=== PATIENT | female | born 1930 | race Caucasian/White ===

== ENCOUNTER 2018-07-03 13:27 | Emergency (ER) | payer MEDICARE, BC ==
[2018-07-03 13:32] VITALS: BP 159/71; PULSE 67; RESP 18; TEMP 98
--- NOTE | 2018-07-03 13:55 | ED ---
General Adult HPI - General Chief complaint: Wound/Laceration Stated complaint: left leg wound Time Seen by Provider: 07/03/18 13:41 Source: patient, family, RN notes reviewed Mode of arrival: ambulatory Limitations: no limitations - History of Present Illness Initial comments: Patient is a pleasant 88-year-old female presenting to the emergency Department with left leg wound. Patient did have a biopsy done 3 months ago. Patient has had wound since that time. Patient has oozing from the wound. No pain. No itching. No significant recent change in size. No fevers or rash otherwise. Patient has followed up with a rodeo performer who just keeps telling her to put Vaseline on it. - Related Data Previous Rx's Medication Instructions Recorded Cephalexin [Keflex] 500 mg PO QID #40 cap 07/03/18 Mupirocin 2% Oint [Bactroban 2% 1 applic TOPICAL TID #30 gm 07/03/18 Oint] Allergies Allergy/AdvReac Type Severity Reaction Status Date / Time bacitracin Allergy Rash/Hives Verified 07/03/18 13:33 [From Neosporin ([id number])] neomycin Allergy Rash/Hives Verified 07/03/18 13:33 [From Neosporin ([id number])] polymyxin B Allergy Rash/Hives Verified 07/03/18 13:33 [From Neosporin ([id number])] Review of Systems ROS Statement: Those systems with pertinent positive or pertinent negative responses have been documented in the HPI. ROS Other: All systems not noted in ROS Statement are negative. Constitutional: Denies: fever Eyes: Denies: eye pain ENT: Denies: ear pain Respiratory: Denies: cough Cardiovascular: Denies: chest pain Endocrine: Denies: fatigue Gastrointestinal: Denies: abdominal pain Genitourinary: Denies: dysuria Musculoskeletal: Denies: back pain Skin: Reports: other (Leg ulcer) Past Medical History Past Medical History: Thyroid Disorder Additional Past Medical History / Comment(s): irregular heart beat History of Any Multi-Drug Resistant Organisms: None Reported Past Surgical History: Appendectomy Past Psychological History: No Psychological Hx Reported Smoking Status: Never smoker Past Alcohol Use History: Daily Past Drug Use History: None Reported General Exam Limitations: no limitations General appearance: alert, in no apparent distress Head exam: Present: atraumatic Eye exam: Present: normal appearance Neck exam: Present: normal inspection Respiratory exam: Present: normal lung sounds bilaterally Cardiovascular Exam: Present: regular rate, normal rhythm Expanded Peripheral pulses: 2+: Dorsalis Pedis (R), Dorsalis Pedis (L) GI/Abdominal exam: Present: soft. Absent: tenderness Extremities exam: Present: other (Left lower lateral leg with approximately 2 x 2 centimeter skin ulcers stage 2/3. There is clear discharge. Area is approximately 5-6 cm above the left lateral ankle.) Neurological exam: Present: alert Psychiatric exam: Present: normal affect, normal mood Skin exam: Present: other (Skin ulcer) Course Vital Signs 07/03/18 13:29 Temperature 98 F Pulse Rate 67 Respiratory 18 Rate Blood Pressure 159/71 O2 Sat by Pulse 96 Oximetry Disposition Clinical Impression: Leg ulcer, left Disposition: HOME SELF-CARE Condition: Stable Instructions: Chronic Wounds (ED) Additional Instructions: Please follow-up with primary care physician in the next couple days for recheck. Have primary care physician consider consult to the wound center. Return for fever, redness, worsening symptoms or other concerns. Prescriptions: Cephalexin [Keflex] 500 mg PO QID #40 cap Mupirocin 2% Oint [Bactroban 2% Oint] 1 applic TOPICAL TID #30 gm Is patient prescribed a controlled substance at d/c from ED?: No Referrals: Jorge Gudino MD [Primary Care Provider] - 1-2 days Time of Disposition: 13:53
== END 2018-07-03 14:27 | disposition home or self-care (01) ==
LOC: EC 13:27
DX: L97.929 Non-pressure chronic ulcer of unspecified part of left lower leg with unspecified severity (principal); Z88.1 Allergy status to other antibiotic agents
CPT/HCPCS: 87070; 87077; 87186; 87205; 99283

== ENCOUNTER → 2018-07-18 | Outpatient (CLI) | payer MEDICARE, BC ==
--- NOTE | 2018-07-19 07:37 | US ---
EXAMINATION TYPE: US venous doppler duplex LE BI DATE OF EXAM: 07/18/2018 3:05 PM COMPARISON: NONE CLINICAL HISTORY: M.79.604 Pain rt leg,M79.605 Pain lt leg. SIDE PERFORMED: TECHNIQUE: The lower extremity deep venous system is examined utilizing real time linear array sonog lakisha with graded compression, doppler sonography and color-flow sonography. VESSELS IMAGED: External Iliac Vein (EIV) Common Femoral Vein Deep Femoral Vein Greater Saphenous Vein * Femoral Vein Popliteal Vein Small Saphenous Vein * Proximal Calf Veins (* superficial vessels) Grayscale, color doppler, spectral doppler imaging performed of the deep veins of the lower extremiti es. There is normal flow, compressibility, vascular waveforms. IMPRESSION: No evidence of DVT. LOWER EXTREMITY VENOUS INSUFFICIENCY SIDE PERFORMED: 1) Color flow is present and patency is documented in the following vessels. No DVT or SVT is noted . EIV Common Femoral Vein Deep Femoral Vein Femoral Vein Popliteal Vein Proximal Calf Veins Greater Saph Vein Upper Small Saph Vein 2) There is NO venous reflux noted at the following venous levels: Right proximal, mid and distal p opliteal Left DFV Left distal popliteal IMPRESSION: No venous reflux identified at this time.
--- NOTE | 2018-07-23 10:59 | P.ARTDOP ---
Arterial Doppler LOWER EXTREMITY ARTERIAL DOPPLER: DATE OF SERVICE: 07/18/2018 Reason for study: Left ankle ulcer. Doppler waveforms: Multiphasic bilaterally to the dorsalis pedis. Pulse volume recording: Normal configuration except at the toe level William blunted. Pressure gradients: Minimal gradient distally. Ankle-brachial indices: 0.97 on the right and no pressures done on the left.. Toe pressures: [] on the right, [] on the left Impression: Suspect mild distal disease bilaterally. Perfusion at the ankle level should be adequate for healing..
== END | disposition home or self-care (01) ==
LOC: RADUSWWP 13:20
PROVIDERS: ATTEND Internal Medicine Infectious Disease
DX: I87.2 Venous insufficiency (chronic) (peripheral) (principal); M79.604 Pain in right leg
CPT/HCPCS: 93923; 93970

== ENCOUNTER 2019-07-03 14:36 | Inpatient (IN) | payer MEDICARE, BC ==
[2019-07-03] MEDS ORDERED: SODIUM CHLORIDE 0.9% 1,000 ML IV STA (14:50)
[2019-07-03] MEDS ORDERED: PANTOPRAZOLE 40 MG/10 ML VIAL IVP STA (14:50)
[2019-07-03] MEDS ORDERED: ONDANSETRON 4 MG/2 ML VIAL IVP STA (14:50)
[2019-07-03 15:40] LABS: Basophils % (A) 0 %; Eosinophils # (A) 0.1 k/uL (0-0.7); Eosinophils % (A) 2 %; HGB 13.2 gm/dL (11.4-16.0); Lymphocytes # (A) 1.5 k/uL (1.0-4.8); Lymphocytes % (A) 16 %; MCH 32.2 pg (25.0-35.0); MCV 97.6 fL (80.0-100.0); Mean Platelet Volume 7.3; Monocytes # (A) 0.4 k/uL (0-1.0); Monocytes % (A) 5 %; Neutrophils # (A) 7.3 k/uL (1.3-7.7); Neutrophils % (A) 77 %; Platelet Count 225 k/uL (150-450); RDW 12.8 % (11.5-15.5); WBC 9.4 k/uL (3.8-10.6)
[2019-07-03 15:47] LABS: Albumin 3.9 g/dL (3.5-5.0); Calcium 9.3 mg/dL (8.4-10.2); Magnesium 2.4 mg/dL (1.6-2.3); Potassium 3.9 mmol/L (3.5-5.1); Total Bilirubin 0.5 mg/dL (0.2-1.3); Total Protein 6.9 g/dL (6.3-8.2)
[2019-07-03 16:07] LABS: INR 0.9 (<1.2); Prothrombin Time 10.1 sec (9.0-12.0)
[2019-07-03 16:08] LABS: Partial Thromboplastin Time 21.9 sec (22.0-30.0)
--- NOTE | 2019-07-03 16:21 | ED ---
General Adult HPI - General Chief complaint: Nausea/Vomiting/Diarrhea Stated complaint: ABd Pain Time Seen by Provider: 07/03/19 14:40 Source: patient, RN notes reviewed Mode of arrival: EMS Limitations: no limitations - History of Present Illness Initial comments: This is an 89-year-old female presents emergency department stating that an hour after she ate she became nauseated and vomited there was a little blood in the emesis. Patient states shortly thereafter she started having diarrhea which also had blood in it. Patient states she has lower abdominal pain. Patient denies lightheadedness or dizziness. Patient states she continues to be na useated. Patient denies any chest pain palpitations suddenly breathing shortness of breath per patient denies any lightheadedness or dizziness. Patient denies being on blood thinners - Related Data Home Medications Medication Instructions Recorded Confirmed Aspirin [Adult Low Dose Aspirin EC] 81 mg PO HS 07/03/18 07/03/19 Atenolol 25 mg PO HS 07/03/18 07/03/19 Furosemide [Lasix] 40 mg PO DAILY 07/03/18 07/03/19 Levothyroxine Sodium 25 mcg PO DAILY 07/03/18 07/03/19 Potassium Chloride ER [K-Dur 10] 10 meq PO BID 07/03/18 07/03/19 Allergies Allergy/AdvReac Type Severity Reaction Status Date / Time bacitracin Allergy Rash/Hives Verified 07/03/19 14:58 [From Neosporin ([id number])] neomycin Allergy Rash/Hives Verified 07/03/19 14:58 [From Neosporin ([id number])] polymyxin B Allergy Rash/Hives Verified 07/03/19 14:58 [From Neosporin ([id number])] Review of Systems ROS Statement: Those systems with pertinent positive or pertinent negative responses have been documented in the HPI. ROS Other: All systems not noted in ROS Statement are negative. Past Medical History Past Medical History: Thyroid Disorder Additional Past Medical History / Comment(s): irregular heart beat, fluid retention, wound lt outer leg by ankle History of Any Multi-Drug Resistant Organisms: None Reported Past Surgical History: Appendectomy Additional Past Surgical History / Comment(s): surgery for perforated rt eardrum and bone loss Past Anesthesia/Blood Transfusion Reactions: No Reported Reaction Past Psychological History: No Psychological Hx Reported Smoking Status: Never smoker Past Alcohol Use History: Daily Past Drug Use History: None Reported - Past Family History Sister(s) Family Medical History: Cancer Additional Family Medical History / Comment(s): lung cancer Mother Family Medical History: Congestive Heart Failure (CHF) General Exam - General Exam Comments Initial Comments: GENERAL: Patient is well-developed and well-nourished. Patient is nontoxic and well- hydrated and is in mild distress. ENT: Neck is soft and supple. No significant lymphadenopathy is noted. Oropharynx is clear. Moist mucous membranes. Neck has full range of motion without eliciting any pain. EYES: The sclera were anicteric and conjunctiva were pink and moist. Extraocular movements were intact and pupils were equal round and reactive to light. Eyelids were unremarkable. PULMONARY: Unlabored respirations. Good breath sounds bilaterally. No audible rales rho nchi or wheezing was noted. CARDIOVASCULAR: There is a regular rate and rhythm without any murmurs gallops or rubs. ABDOMEN: Mild suprapubic abdominal pain. No palpable organomegaly was noted. There is no palpable pulsatile mass. SKIN: Skin is clear with no lesions or rashes and otherwise unremarkable. NEUROLOGIC: Patient is alert and oriented x3. Cranial nerves II through XII are grossly intact. Motor and sensory are also intact. Normal speech, volume and content. Symmetrical smile. MUSCULOSKELETAL: Normal extremities with adequate strength and full range of motion. No lower extremity swelling or edema. No calf tenderness. LYMPHATICS: No significant lymphadenopathy is noted PSYCHIATRIC: Normal psychiatric evaluation. Limitations: no limitations Course Vital Signs 07/03/19 07/03/19 07/03/19 14:37 14:50 15:00 Temperature 97.4 F L Pulse Rate 69 64 63 Respiratory 18 27 H 19 Rate Blood Pressure 157/74 157/74 O2 Sat by Pulse 97 Oximetry 07/03/19 07/03/19 15:30 16:00 Temperature Pulse Rate 57 L 59 L Respiratory 14 11 L Rate Blood Pressure 149/79 138/66 O2 Sat by Pulse Oximetry Medical Decision Making - Medical Decision Making EKG shows sinus rhythm at 65 bpm QRS is 106 QT interval 442 QTC is 459. Patient's EKG shows no ST segment elevation or depression. Patient's AK interval is 200. I spoke with Dr. Gudino he agreed to admit the patient admitted the patient I wrote admitting orders I consulted GI and a repeat CBC - Lab Data Result diagrams: 07/03/19 15:22 07/03/19 15:22 Lab Results 07/03/19 07/03/19 07/03/19 Range/Units 15:22 15:22 15:22 WBC 9.4 (3.8-10.6) k/uL RBC 4.10 (3.80-5.40) m/uL Hgb 13.2 (11.4-16.0) gm/dL Hct 40.0 (34.0-46.0) % MCV 97.6 (80.0-100.0) fL MCH 32.2 (25.0-35.0) pg MCHC 33.0 (31.0-37.0) g/dL RDW 12.8 (11.5-15.5) % Plt Count 225 (150-450) k/uL Neutrophils % 77 % Lymphocytes % 16 % Monocytes % 5 % Eosinophils % 2 % Basophils % 0 % Neutrophils # 7.3 (1.3-7.7) k/uL Lymphocytes # 1.5 (1.0-4.8) k/uL Monocytes # 0.4 (0-1.0) k/uL Eosinophils # 0.1 (0-0.7) k/uL Basophils # 0.0 (0-0.2) k/uL PT 10.1 (9.0-12.0) sec INR 0.9 (<1.2) APTT 21.9 L (22.0-30.0) sec Sodium 141 (137-145) mmol/L Potassium 3.9 (3.5-5.1) mmol/L Chloride 108 H (98-107) mmol/L Carbon Dioxide 27 (22-30) mmol/L Anion Gap 6 mmol/L BUN 25 H (7-17) mg/dL Creatinine 0.77 (0.52-1.04) mg/dL Est GFR (CKD-EPI)AfAm 80 (>60 ml/min/1.73 sqM) Est GFR (CKD-EPI)NonAf 70 (>60 ml/min/1.73 sqM) Glucose 101 H (74-99) mg/dL Plasma Lactic Acid Torin (0.7-2.0) mmol/L Calcium 9.3 (8.4-10.2) mg/dL Magnesium 2.4 H (1.6-2.3) mg/dL Total Bilirubin 0.5 (0.2-1.3) mg/dL AST 25 (14-36) U/L ALT 18 (9-52) U/L Alkaline Phosphatase 72 (38-126) U/L Troponin I (0.000-0.034) ng/mL Total Protein 6.9 (6.3-8.2) g/dL Albumin 3.9 (3.5-5.0) g/dL Blood Type Blood Type Recheck Antibody Screen Spec Expiration Date 07/03/19 07/03/19 07/03/19 Range/Units 15:22 15:22 16:13 WBC (3.8-10.6) k/uL RBC (3.80-5.40) m/uL Hgb (11.4-16.0) gm/dL Hct (34.0-46.0) % MCV (80.0-100.0) fL MCH (25.0-35.0) pg MCHC (31.0-37.0) g/dL RDW (11.5-15.5) % Plt Count (150-450) k/uL Neutrophils % % Lymphocytes % % Monocytes % % Eosinophils % % Basophils % % Neutrophils # (1.3-7.7) k/uL Lymphocytes # (1.0-4.8) k/uL Monocytes # (0-1.0) k/uL Eosinophils # (0-0.7) k/uL Basophils # (0-0.2) k/uL PT (9.0-12.0) sec INR (<1.2) APTT (22.0-30.0) sec Sodium (137-145) mmol/L Potassium (3.5-5.1) mmol/L Chloride (98-107) mmol/L Carbon Dioxide (22-30) mmol/L Anion Gap mmol/L BUN (7-17) mg/dL Creatinine (0.52-1.04) mg/dL Est GFR (CKD-EPI)AfAm (>60 ml/min/1.73 sqM) Est GFR (CKD-EPI)NonAf (>60 ml/min/1.73 sqM) Glucose (74-99) mg/dL Plasma Lactic Acid Torin 1.1 (0.7-2.0) mmol/L Calcium (8.4-10.2) mg/dL Magnesium (1.6-2.3) mg/dL Total Bilirubin (0.2-1.3) mg/dL AST (14-36) U/L ALT (9-52) U/L Alkaline Phosphatase (38-126) U/L Troponin I <0.012 (0.000-0.034) ng/mL Total Protein (6.3-8.2) g/dL Albumin (3.5-5.0) g/dL Blood Type B Positive Blood Type Recheck CABO Indicated Antibody Screen NEGATIVE Spec Expiration Date 07/06/20192321 Disposition Clinical Impression: Gastroenteritis, GI bleed Disposition: ADMITTED IP TO THIS [facility] Referrals: Jorge Gudino MD [Primary Care Provider] - 1-2 days Time of Disposition: 16:48
[2019-07-03] MEDS ORDERED: SODIUM CHLORIDE 0.9% 1,000 ML IV ONE (16:49)
[2019-07-03] MEDS ORDERED: DIPHENOX-ATROP 2.5-0.025 MG 1 EACH TAB PO PRN (16:51)
[2019-07-03] MEDS ORDERED: ONDANSETRON 4 MG/2 ML VIAL IVP PRN (16:53)
[2019-07-03 19:45] LABS: Appearance,Urine Clear (Clear); Bilirubin,Urine Negative (Negative); Blood,Urine Negative (Negative); Color,Urine Yellow; Glucose,Urine (UA) Negative (Negative); Ketones,Urine Negative (Negative); Leukocyte Esterase,Urine Negative (Negative); Nitrite,Urine Negative (Negative); PH, Urine 6.5 (5.0-8.0); Protein,Urine Trace (Negative); Specific Gravity,Urine 1.024 (1.001-1.035)
[2019-07-03 22:01] LABS: Basophils % (A) 0 %; Eosinophils # (A) 0.1 k/uL (0-0.7); Eosinophils % (A) 1 %; HCT 34.1 % (34.0-46.0); HGB 11.2 gm/dL (11.4-16.0); Lymphocytes # (A) 1.1 k/uL (1.0-4.8); Lymphocytes % (A) 10 %; MCH 33.1 pg (25.0-35.0); MCHC 32.8 g/dL (31.0-37.0); MCV 100.8 fL (80.0-100.0); Mean Platelet Volume 7.5; Monocytes # (A) 0.4 k/uL (0-1.0); Monocytes % (A) 4 %; Neutrophils # (A) 9.5 k/uL (1.3-7.7); Neutrophils % (A) 85 %; Platelet Count 199 k/uL (150-450); RBC 3.38 m/uL (3.80-5.40); RDW 13.5 % (11.5-15.5); WBC 11.1 k/uL (3.8-10.6)
[2019-07-03 23:58] LABS: Glucose,Whole Blood 118 mg/dL (75-99)
[2019-07-04] MEDS ORDERED: NALOXONE 0.4 MG/ML 1 ML VIAL IV PRN (00:59)
[2019-07-04 04:41] LABS: Basophils % (A) 0 %; Eosinophils # (A) 0.1 k/uL (0-0.7); Eosinophils % (A) 1 %; HCT 33.6 % (34.0-46.0); HGB 10.8 gm/dL (11.4-16.0); Lymphocytes # (A) 1.2 k/uL (1.0-4.8); Lymphocytes % (A) 11 %; MCH 32.3 pg (25.0-35.0); MCHC 32.1 g/dL (31.0-37.0); MCV 100.6 fL (80.0-100.0); Monocytes # (A) 0.4 k/uL (0-1.0); Monocytes % (A) 4 %; Neutrophils # (A) 9.2 k/uL (1.3-7.7); Neutrophils % (A) 85 %; Platelet Count 189 k/uL (150-450); RBC 3.34 m/uL (3.80-5.40); RDW 12.8 % (11.5-15.5); WBC 10.9 k/uL (3.8-10.6)
[2019-07-04 04:52] LABS: African American GFR (CKD) >90 (>60 ml/min/1.73 sqM); Anion Gap 4 mmol/L; Blood Urea Nitrogen 43 mg/dL (7-17); Calcium 8.3 mg/dL (8.4-10.2); Carbon Dioxide 24 mmol/L (22-30); Chloride 114 mmol/L (98-107); Glucose 117 mg/dL (74-99); Non-African American GFR(CKD) 83 (>60 ml/min/1.73 sqM); Potassium 4.6 mmol/L (3.5-5.1); Sodium 142 mmol/L (137-145)
--- NOTE | 2019-07-04 07:45 | P.CRDCN ---
History of Present Illness Consult date: 07/04/19 Chief complaint: Bradycardia History of present illness: This is a pleasant 89-year-old female patient with a past medical history significant for hypertension as well as thyroid disorder presented to the emergency room complaining of blood in the stools for the last 24 hours. The patient also was experiencing symptoms of nausea as well as vomiting. No abdominal discomfort. No fever and no chills. No symptoms of chest pain or c hest discomfort. She was admitted to the intensive care unit for possible lower GI bleeding and a GI consult was obtained. The hemoglobin when she presented to the hospital was around 13 and a hemoglobin this morning was around 11. The patient stated that she was taken aspirin as an outpatient and also she was receiving nonsteroid anti-inflammatory for hip pain about twice a week. We involved in her care because off the bradycardia. The patient was yesterday in the bathroom having a bowel movement when she felt dizzy and lightheaded and she developed bradycardia as well as hypotension. The symptom seems to be consistent with vasovagal. She did not lose her consciousness. Beside that she did have an episode of muscle stent ventricular tachycardia last night. The patient is not aware of any history of coronary artery disease or congestive heart failure or cardiac arrhythmia and never seen any nuclear test technician in the past. No diabetes, or dyslipidemia. She was at home receiving atenolol. She has been maintaining a good heart rate and she is slightly hypertensive. On examination she does have systolic murmur at the right upper sternal border. The rest of her blood work came in to be unremarkable. The EKG showed sinus rhythm with left anterior fascicular block and nonspecific ST or T-wave abnormalities. Past Medical History Past Medical History: Thyroid Disorder Additional Past Medical History / Comment(s): irregular heart beat, fluid retention, wound lt outer leg by ankle History of Any Multi-Drug Resistant Organisms: None Reported Past Surgical History: Appendectomy Additional Past Surgical History / Comment(s): surgery for perforated rt eardrum and bone loss Past Anesthesia/Blood Transfusion Reactions: No Reported Reaction Past Psychological History: No Psychological Hx Reported Smoking Status: Never smoker Past Alcohol Use History: Daily Additional Past Alcohol Use History / Comment(s): 2 glasses wine nightly Past Drug Use History: None Reported - Past Family History Sister(s) Family Medical History: Cancer Additional Family Medical History / Comment(s): lung cancer Mother Family Medical History: Congestive Heart Failure (CHF) Medications and Allergies Home Medications Medication Instructions Recorded Confirmed Type Aspirin [Adult Low Dose Aspirin EC] 81 mg PO HS 07/03/18 07/03/19 History Atenolol 25 mg PO HS 07/03/18 07/03/19 History Furosemide [Lasix] 40 mg PO DAILY 07/03/18 07/03/19 History Levothyroxine Sodium 25 mcg PO DAILY 07/03/18 07/03/19 History Potassium Chloride ER [K-Dur 10] 10 meq PO BID 07/03/18 07/03/19 History Allergies Allergy/AdvReac Type Severity Reaction Status Date / Time bacitracin Allergy Rash/Hives Verified 07/03/19 14:58 [From Neosporin ([id number])] neomycin Allergy Rash/Hives Verified 07/03/19 14:58 [From Neosporin ([id number])] polymyxin B Allergy Rash/Hives Verified 07/03/19 14:58 [From Neosporin ([id number])] Physical Exam Vitals: Vital Signs Temp Pulse Pulse Resp BP BP Pulse Ox 07/04/19 07:00 78 19 143/117 92 L 07/04/19 06:00 75 14 148/71 90 L 07/04/19 05:00 75 19 147/81 93 L 07/04/19 04:00 97.9 F 73 20 137/66 94 L 07/04/19 03:00 75 7 L 144/61 91 L 07/04/19 02:00 75 20 115/97 92 L 07/04/19 01:00 68 10 L 140/85 95 07/04/19 00:16 97.9 F 70 20 142/109 95 07/03/19 23:39 99.0 F 64 16 133/63 96 07/03/19 21:47 97.8 F 89 17 129/69 96 07/03/19 21:10 98.6 F 60 18 128/63 96 07/03/19 20:30 16 07/03/19 19:23 58 L 16 157/71 95 07/03/19 18:53 128/69 07/03/19 18:15 97.7 F 80 17 179/67 94 L 07/03/19 18:05 97.4 F L 69 16 151/70 97 07/03/19 17:30 69 16 151/70 07/03/19 17:00 82 32 H 145/69 07/03/19 16:30 62 12 160/75 07/03/19 16:00 59 L 11 L 138/66 07/03/19 15:30 57 L 14 149/79 07/03/19 15:00 63 19 157/74 07/03/19 14:50 64 27 H 07/03/19 14:37 97.4 F L 69 18 157/74 97 Intake and Output 07/03/19 07/04/19 07/04/19 22:59 06:59 14:59 Intake Total 600 450 75 Output Total 810 100 Balance 600 -360 -25 Intake: IV 450 75 Sodium Chloride 0.9% 1, 450 75 000 ml @ 75 mls/hr IV . [id number] ONE Rx#:[id number] Amount of Fluid Infused ( 600 ml) Output: Urine 810 100 Other: Voiding Method Bedpan Indwelling Catheter # Voids 1 # Bowel Movements 2 1 - Constitutional General appearance: no acute distress - Respiratory Respiratory: bilateral: CTA - Cardiovascular Rhythm: regular Heart sounds: normal: S1, S2 Abnormal Heart Sounds: systolic murmur Results 07/04/19 04:31 07/04/19 04:31 Cardiac Enzymes 07/03/19 07/03/19 Range/Units 15:22 15:22 AST 25 (14-36) U/L Troponin I <0.012 (0.000-0.034) ng/mL Coagulation 07/03/19 Range/Units 15:22 PT 10.1 (9.0-12.0) sec APTT 21.9 L (22.0-30.0) sec CBC 07/03/19 07/03/19 07/04/19 Range/Units 15:22 21:38 04:31 WBC 9.4 11.1 H 10.9 H (3.8-10.6) k/uL RBC 4.10 3.38 L 3.34 L (3.80-5.40) m/uL Hgb 13.2 11.2 L 10.8 L (11.4-16.0) gm/dL Hct 40.0 34.1 33.6 L (34.0-46.0) % Plt Count 225 199 189 (150-450) k/uL Comprehensive Metabolic Panel 07/03/19 07/04/19 Range/Units 15:22 04:31 Sodium 141 142 (137-145) mmol/L Potassium 3.9 4.6 (3.5-5.1) mmol/L Chloride 108 H 114 H (98-107) mmol/L Carbon Dioxide 27 24 (22-30) mmol/L BUN 25 H 43 H (7-17) mg/dL Creatinine 0.77 0.59 (0.52-1.04) mg/dL Glucose 101 H 117 H (74-99) mg/dL Calcium 9.3 8.3 L (8.4-10.2) mg/dL AST 25 (14-36) U/L ALT 18 (9-52) U/L Alkaline Phosphatase 72 (38-126) U/L Total Protein 6.9 (6.3-8.2) g/dL Albumin 3.9 (3.5-5.0) g/dL Current Medications Generic Name Dose Route Start Last Admin Trade Name Freq PRN Reason Stop Dose Admin Diphenoxylate HCl/Atropine 1 each 07/03/19 16:51 Lomotil PO Q6HR PRN Diarrhea Naloxone HCl 0.2 mg 07/04/19 00:59 Narcan IV Q2M PRN Opioid Reversal Ondansetron HCl 4 mg 07/03/19 16:53 Zofran IVP Q6HR PRN Nausea And Vomiting Intake and Output 07/03/19 07/04/19 07/04/19 22:59 06:59 14:59 Intake Total 600 450 75 Output Total 810 100 Balance 600 -360 -25 Intake: IV 450 75 Sodium Chloride 0.9% 1, 450 75 000 ml @ 75 mls/hr IV . [id number] ONE Rx#:[id number] Amount of Fluid Infused ( 600 ml) Output: Urine 810 100 Other: Voiding Method Bedpan Indwelling Catheter # Voids 1 # Bowel Movements 2 1 07/04/19 04:31 07/04/19 04:31 Assessment and Plan Assessment: Assessment #1 lower GI bleeding. The patient currently is in process of being seen by the GI service #2 bradycardia and hypotension during a bowel movement. His is likely related to vasovagal. #3 one episode of nonsustained ventricular tachycardia #4 thyroid disorder Plan #1 currently the atenolol is on hold. #2 we'll continue monitor the heart rate and blood pressure #3 obtain an echocardiogram was Doppler #4 check the TSH #5 follow-up with the patient. Thank you for allowing us participate in her care and we will continue following up with the patient
--- NOTE | 2019-07-04 08:31 | CONS ---
CONSULTATION PULMONARY/CRITICAL CARE CONSULTATION DATE OF CONSULTATION: July 04, 2019 This is an 89-year-old female who apparently presents to the emergency room via EMS. She apparently ate and about one hour after eating, became nauseated and vomited and there was blood in the vomitus. Additionally afterwards, she started having abdominal discomfort and noted that she had some diarrhea and again there was blood in the stools. She had lower abdominal pain at that time. Anyway, because of the ongoing nausea and because of the concerns of what appears to be an upper GI bleed and possibly also a lower GI bleed, she was brought in by EMS to be evaluated. She denied any chest pain or pressure. There was no shortness of breath. No cough, wheezing, or phlegm production. There was no lightheadedness or dizziness. No genitourinary complaints. Anyway, the patient is currently here resting comfortably. She was admitted on July 03. She was admitted with GI bleed with hematemesis and bright red bleeding per rectum. Currently, she is on room air. She is getting saline at 75 mL an hour. She has not received any blood. Her hemoglobin this morning is 11.2. She has a past medical history of hypertension, lower extremity edema, and hypothyroidism. She has no previous history of same. HOME MEDICATIONS: Her home medications include aspirin, atenolol, Lasix levothyroxine, potassium chloride. ALLERGIES: Her allergies include BACITRACIN, NEOMYCIN and POLYMYXIN B. MEDICAL HISTORY: Her medical history includes hypothyroidism, hypertension and lower extremity edema. She also apparently has a history of fluid retention and irregular heartbeat. She also apparently has a wound on her left outer leg by her ankle. SURGICAL HISTORY: Surgical history includes appendectomy, perforated right ear drum repair and some other minor procedures. SOCIAL HISTORY: Social history is significant in that she is a lifelong nonsmoker. She does drink daily. Denies any drug use. FAMILY HISTORY: Past family history is positive for sister with lung cancer and mother with congestive heart failure. Her father's history is not known. REVIEW OF SYSTEMS: CONSTITUTIONAL: Negative. NEUROLOGIC: Negative. HEENT: Negative. CARDIOVASCULAR: Negative. PULMONARY: Negative. GI: Nausea, vomiting, hematemesis, diarrhea, abdominal pain and cramping and bright red bleeding per rectum/hematochezia. : Negative. RHEUMATOLOGIC: Negative. IMMUNOLOGIC: Negative. ENDOCRINOLOGIC: Negative. DERMATOLOGIC: Negative. PHYSICAL EXAMINATION: VITAL SIGNS: Current vital signs are reviewed and include temperature 97.9, heart rate 73, respiratory rate 20, blood pressure 137/66, mean 89 and room air saturation 94%. She appears in no acute distress. HEENT: Examination is grossly unremarkable. Mucous membranes are moist. No oral lesions. NECK: Supple. Full range of motion. No adenopathy or thyromegaly. Neck veins are flat. CARDIOVASCULAR: Examination reveals regular rhythm and rate. S1, S2 normal. No S3, S4, or murmur. Heart rate 73. LUNGS: Clear. Breath sounds equal. No adventitious lung sounds. No wheezes, rhonchi, or crackles. ABDOMEN: Soft. Bowel sounds are noted. No mass or tenderness. EXTREMITIES: Are intact. No cyanosis, clubbing, or edema. SKIN: Without rash. NEUROLOGIC: Examination is brief but nonfocal. The patient is on 0.9 at 75 mL an hour. LABORATORY DATA: Laboratory data includes a white count 10.9, repeat hemoglobin 10.8 down from 11.2, hematocrit 33.6, and a platelet count of 189,000. No x-rays to report. MEDICATIONS: Her current medications include Lomotil, Narcan, Zofran, Protonix and IV fluids. ASSESSMENT: 1. Possible upper and lower gastrointestinal bleed and this may relate to alcoholic gastritis as the patient apparently does drink on a daily basis. 2. History of hypothyroidism. 3. Hypertension. 4. Lower extremity edema. 5. Mild anemia. PLAN: Gastroenterology was consulted. She had been started on proton pump inhibitor. She remains on saline at 75 mL an hour. She has not received or required any blood. This morning's hemoglobin was 10.8. Additional recommendations and suggestions forthcoming. Aspirin has been discontinued. We will continue to follow closely. MMODL / IJN: [id number] /
[2019-07-04] MEDS: SODIUM CHLORIDE 0.9% 1,000 ML IV SCH ×2 (11:20→21:52)
--- NOTE | 2019-07-04 11:59 | P.CONS ---
History of Present Illness - Reason for Consult Consult date: 07/04/19 GI bleed Requesting physician: Jorge Gudino - Chief Complaint rectal bleeding - History of Present Illness 89-year-old female with a past medical history colonic diverticulosis per abdominal CT, lower extremity venous stasis ulcers, hypertension admitted with bilateral lower abdominal pain hematemesis and hematochezia. Patient reports passing multiple grossly bloody bowel movements yesterday however late last night heart rate dropped down into the 30s dizzy lightheaded possible vasovagal syndrome however she continued to pass bloody bowel movements followed by an e pisode of NSVT transferred to the ICU. This morning I see reports 3 bowel movements that have been black in color as well as an emesis this morning that was coffee-ground. No history GI bleed. She's been taking 400 mg of Motrin as needed not on a daily basis for hip pain. Additional home medications baby aspirin. No alcohol or Pepto-Bismol. Admission hemoglobin 13.2 presently 10.8. MCV 100.6. Platelet 189. INR 0.9. BUN 25 increase to 43. Troponin less than 0.012. Sodium 142. Potassium 4.6. Lactic acid 1.1. Magnesium 2.4 yesterday. No recent EGD. Last colonoscopy 2016 at [facility] performed by Dr. Brizuela scattered sigmoid diverticulosis. CT abdomen pelvis ordered. Review of Systems Constitutional: Denies fever, chills, sweats, weight gain, or loss. HEENT: Negative for migraines, blurred vision or loss, earaches, drainage, tinnitus, oral mucosal lesions, dysphagia, or odynophagia. CARDIAC: Negative for chest pain, arrhythmias, or palpitation. RESPIRATORY: Negative for shortness of breath, hemoptysis, cough, or sputum production. GI: See HPI for pertinent findings. : Negative for hematuria, urgency, frequency, polyuria, or dysuria. GYNc: Negative vaginal discharge. MUSCULOSKELETAL: Negative for muscle aches, swelling, arthritis, and arthralgias. NEUROLOGIC: Negative for stroke or TIA. ENDOCRINE: Negative for thyroid problems. SKIN: Negative for rash or itching. PSYCHIATRIC: Negative history for depression and anxiety Past Medical History Past Medical History: Thyroid Disorder Additional Past Medical History / Comment(s): irregular heart beat, fluid retention, wound lt outer leg by ankle History of Any Multi-Drug Resistant Organisms: None Reported Past Surgical History: Appendectomy Additional Past Surgical History / Comment(s): surgery for perforated rt eardrum and bone loss Past Anesthesia/Blood Transfusion Reactions: No Reported Reaction Past Psychological History: No Psychological Hx Reported Smoking Status: Never smoker Past Alcohol Use History: Daily Additional Past Alcohol Use History / Comment(s): 2 glasses wine nightly Past Drug Use History: None Reported - Past Family History Sister(s) Family Medical History: Cancer Additional Family Medical History / Comment(s): lung cancer Mother Family Medical History: Congestive Heart Failure (CHF) Medications and Allergies Home Medications Medication Instructions Recorded Confirmed Type Aspirin [Adult Low Dose Aspirin EC] 81 mg PO HS 07/03/18 07/03/19 History Atenolol 25 mg PO HS 07/03/18 07/03/19 History Furosemide [Lasix] 40 mg PO DAILY 07/03/18 07/03/19 History Levothyroxine Sodium 25 mcg PO DAILY 07/03/18 07/03/19 History Potassium Chloride ER [K-Dur 10] 10 meq PO BID 07/03/18 07/03/19 History Allergies Allergy/AdvReac Type Severity Reaction Status Date / Time bacitracin Allergy Rash/Hives Verified 07/03/19 14:58 [From Neosporin ([id number])] neomycin Allergy Rash/Hives Verified 07/03/19 14:58 [From Neosporin ([id number])] polymyxin B Allergy Rash/Hives Verified 07/03/19 14:58 [From Neosporin ([id number])] Physical Exam Vitals: Vital Signs Temp Pulse Pulse Resp BP BP Pulse Ox 07/04/19 10:00 68 18 156/71 95 07/04/19 09:00 89 17 155/59 95 07/04/19 08:00 98.7 F 85 19 134/64 94 L 07/04/19 07:00 78 19 143/117 92 L 07/04/19 06:00 75 14 148/71 90 L 07/04/19 05:00 75 19 147/81 93 L 07/04/19 04:00 97.9 F 73 20 137/66 94 L 07/04/19 03:00 75 7 L 144/61 91 L 07/04/19 02:00 75 20 115/97 92 L 07/04/19 01:00 68 10 L 140/85 95 07/04/19 00:16 97.9 F 70 20 142/109 95 07/03/19 23:39 99.0 F 64 16 133/63 96 07/03/19 21:47 97.8 F 89 17 129/69 96 07/03/19 21:10 98.6 F 60 18 128/63 96 07/03/19 20:30 16 07/03/19 19:23 58 L 16 157/71 95 07/03/19 18:53 128/69 07/03/19 18:15 97.7 F 80 17 179/67 94 L 07/03/19 18:05 97.4 F L 69 16 151/70 97 07/03/19 17:30 69 16 151/70 07/03/19 17:00 82 32 H 145/69 07/03/19 16:30 62 12 160/75 07/03/19 16:00 59 L 11 L 138/66 07/03/19 15:30 57 L 14 149/79 07/03/19 15:00 63 19 157/74 07/03/19 14:50 64 27 H 07/03/19 14:37 97.4 F L 69 18 157/74 97 Intake and Output 07/03/19 07/04/19 07/04/19 22:59 06:59 14:59 Intake Total 600 450 300 Output Total 810 640 Balance 600 -360 -340 Intake: IV 450 300 Sodium Chloride 0.9% 1, 450 300 000 ml @ 75 mls/hr IV . [id number] ONE Rx#:[id number] Amount of Fluid Infused ( 600 ml) Output: Urine 810 640 Other: Voiding Method Bedpan Indwelling Catheter Indwelling Catheter # Voids 1 1 # Bowel Movements 2 1 1 General appearance: The patient is alert, oriented, in no acute distress. HET: Head is normocephalic and atraumatic. Pupils are equal and reactive. Oropharynx is clear without lesions. Neck: Supple without lymphadenopathy. Trachea midline. Heart: S1 S2. Regular rate and rhythm. Lungs: No crackles or wheezes are heard. Abdomen: Soft, mildly tender bilateral lower abdomen, nondistended with bowel sounds. No peritoneal signs. No palpable organomegaly or masses. Extremities: Normal skin color and turgor. No cyanosis, rash, ulceration, clubbing, or edema. Radial and pedal pulses are 2/4 bilaterally. Neurological: No focal deficits. Strength and sensation are grossly intact. Results CBC & Chem 7: 07/04/19 04:31 07/04/19 04:31 Labs: Abnormal Lab Results - Last 24 Hours (Table) 07/03/19 07/03/19 07/03/19 Range/Units 15:22 15:22 16:32 WBC (3.8-10.6) k/uL RBC (3.80-5.40) m/uL Hgb (11.4-16.0) gm/dL Hct (34.0-46.0) % MCV (80.0-100.0) fL Neutrophils # (1.3-7.7) k/uL APTT 21.9 L (22.0-30.0) sec Chloride 108 H (98-107) mmol/L BUN 25 H (7-17) mg/dL Glucose 101 H (74-99) mg/dL POC Glucose (mg/dL) (75-99) mg/dL Calcium (8.4-10.2) mg/dL Magnesium 2.4 H (1.6-2.3) mg/dL Urine Protein (Negative) Stool Occult Blood Positive H (Negative) 07/03/19 07/03/19 07/03/19 Range/Units 19:40 21:38 23:55 WBC 11.1 H (3.8-10.6) k/uL RBC 3.38 L (3.80-5.40) m/uL Hgb 11.2 L (11.4-16.0) gm/dL Hct (34.0-46.0) % MCV 100.8 H (80.0-100.0) fL Neutrophils # 9.5 H (1.3-7.7) k/uL APTT (22.0-30.0) sec Chloride (98-107) mmol/L BUN (7-17) mg/dL Glucose (74-99) mg/dL POC Glucose (mg/dL) 118 H (75-99) mg/dL Calcium (8.4-10.2) mg/dL Magnesium (1.6-2.3) mg/dL Urine Protein Trace H (Negative) Stool Occult Blood (Negative) 07/04/19 07/04/19 Range/Units 04:31 04:31 WBC 10.9 H (3.8-10.6) k/uL RBC 3.34 L (3.80-5.40) m/uL Hgb 10.8 L (11.4-16.0) gm/dL Hct 33.6 L (34.0-46.0) % MCV 100.6 H (80.0-100.0) fL Neutrophils # 9.2 H (1.3-7.7) k/uL APTT (22.0-30.0) sec Chloride 114 H (98-107) mmol/L BUN 43 H (7-17) mg/dL Glucose 117 H (74-99) mg/dL POC Glucose (mg/dL) (75-99) mg/dL Calcium 8.3 L (8.4-10.2) mg/dL Magnesium (1.6-2.3) mg/dL Urine Protein (Negative) Stool Occult Blood (Negative) CT scan - abdomen: pending Assessment and Plan (1) GI bleed Narrative/Plan: 89-year-old female admitted with acute symptomatic acute blood loss GI bleed initially with episode of hematemesis and multiple episodes of hematochezia. She experienced episode of bradycardia and on SVT last night possible vasovagal syndrome lightheadedness dizziness. History of recent NSAID use for hip pain and now passing black-colored bowel movements as well as an episode of coffee- ground emesis this morning with elevation of BUN raising the possibility of underlying peptic ulcer disease. Additionally an underlying lower GI bleed cannot be excluded such as a colonic diverticular bleed, bleeding AVM, ischemic colitis. Current Visit: Yes Status: Acute Code(s): K92.2 - GASTROINTESTINAL HEMORRHAGE, UNSPECIFIED SNOMED Code(s): 33944373 (2) Acute blood loss anemia Current Visit: Yes Status: Acute Code(s): D62 - ACUTE POSTHEMORRHAGIC ANEMIA SNOMED Code(s): 267616926 (3) Hematemesis Current Visit: Yes Status: Acute Code(s): K92.0 - HEMATEMESIS SNOMED Code(s): 5839183 (4) Melena Current Visit: Yes Status: Acute Code(s): K92.1 - MELENA SNOMED Code(s): 8883622 (5) Hematochezia Current Visit: Yes Status: Acute Code(s): K92.1 - MELENA SNOMED Code(s): 712306580 (6) Acquired diverticulosis of colon Current Visit: Yes Status: Acute Code(s): K57.30 - DVRTCLOS OF LG INT W/O PERFORATION OR ABSCESS W/O BLEEDING SNOMED Code(s): 513601498 (7) Cardiac arrhythmia Current Visit: Yes Status: Acute Code(s): I49.9 - CARDIAC ARRHYTHMIA, UNSPECIFIED SNOMED Code(s): 012104554 (8) Advanced age Current Visit: Yes Status: Acute Code(s): R54 - AGE-RELATED PHYSICAL DEBILITY SNOMED Code(s): 14989974 Plan: 1. CBC Q6H x 24 hours. Blood transfusions as advised. Protonix 40 mg twice daily. NPO except meds. Will proceed with EGD today to evaluate for underlying peptic ulcer disease. Inpatient colonoscopy not planned at this time. CT of the abdomen and pelvis has been ordered by the attending. Will follow closely with you. No NSAIDs. Cardiology recommendations appreciated. The clerical specialist has discussed the risks, benefits and alternative therapies for the above-mentioned procedure and for both sedation/analgesia as well as necessary blood product administration, if indicated, as they pertain to this patient. The patient has indicated understanding and acceptance of the risks and procedures discussed. Thank you for this kind referral and the opportunity to participate in the care of your patient. This consultation was discussed with Dr. Brizuela. The impression and plan of care have been directed as dictated.
[2019-07-04 12:18] LABS: HCT 33.8 % (34.0-46.0); HGB 11.2 gm/dL (11.4-16.0); MCH 33.5 pg (25.0-35.0); MCHC 33.2 g/dL (31.0-37.0); MCV 100.9 fL (80.0-100.0); Platelet Count 180 k/uL (150-450); RBC 3.35 m/uL (3.80-5.40); RDW 12.8 % (11.5-15.5); WBC 12.5 k/uL (3.8-10.6)
--- NOTE | 2019-07-04 13:22 | HP ---
HISTORY AND PHYSICAL CHIEF COMPLAINT: An 89-year-old white female with past medical history of colon, diverticulosis, hypertension with bilateral lower edema, chronic dizziness, lightheadedness for multiple years for which she is seeing neurologist. She has some kind of vasovagal symptom and bloody bowel movements at home. She came to the hospital due to severe nausea, vomiting with bleeding in her emesis as well as in her stool, coffee-ground emesis while in the hospital. No prior history of GI bleeds and she does not take hardly any NSAIDs at home. She is only on aspirin for blood thinner. Medications are limited at home for hypertension, hypothyroid. Hemoglobin dropped from 13.2 to 11.2. She is admitted to ICU due to significant GI bleeding of unclear etiology. REVIEW OF SYSTEMS: Fourteen-point review of systems as mentioned above. PAST MEDICAL HISTORY: Hypertension with edema, hypothyroidism, irregular heartbeat, fluid retention in the legs. She does not smoke. Occasional alcohol 1 or 2 glasses of wine. Sister with cancer of the lung. MEDICATIONS: Medicines at home: 1. Lasix 40 daily. 2. Atenolol 25 daily. 3. Levothyroxine 25 mcg daily. 4. Potassium chloride 10 mEq b.i.d. 5. Aspirin 81. ALLERGIES: BACITRACIN, NEOMYCIN, POLYMYXIN. PHYSICAL EXAMINATION: Temp 98.7, pulse 60s to 70s, respiratory rate 18 to 20, blood pressure is 115 to 150s over 70s to 90s, O2 is 94% to 96%. CARDIOVASCULAR: S1, S2. NEUROLOGIC: Alert and oriented x3. PSYCH: Fair mood and affect. GI: Mild tenderness diffusely. Increased bowel sounds x4. No guarding. No rebound. Negative McBurney's point. HEMATOLOGY: Is 2+ edema, lymphedema type changes. LUNGS: Are clear. MUSCULOSKELETAL: Lordotic kyphotic spine. Tenderness to palpation spinal muscles in the neck. Labs were reviewed. ASSESSMENT: 1. Acute gastrointestinal bleed, unclear etiology. 2. History of diverticulosis. 3. Near syncope and bradycardia secondary to gastrointestinal bleed, possible vasovagal symptom. Cardiology and GI are definitely consulted. 4. Hematemesis, melena, hematochezia. 5. Diverticulosis. 6. Hypothyroidism. 7. Hypertension. Protonix, IV blood transfusions if needed, n.p.o. except for ice chips. EGD possible colonoscopy will be needed, although she states she had a colonoscopy 5 years ago which was normal. Await multiple consults. History and physical in the ICU: 60 minutes. MMODL / IJN: [id number] /
--- NOTE | 2019-07-04 14:33 | CT ---
EXAMINATION TYPE: CT abdomen pelvis wo con DATE OF EXAM: 07/04/2019 HISTORY: Generalized pain CT DLP: 574.2 mGycm. Automated Exposure Control for Dose Reduction was Utilized. TECHNIQUE: CT scan of the abdomen and pelvis is performed without oral or IV contrast. COMPARISON: CT abdomen and pelvis August 25, 2016 FINDINGS: Within the limitations of a non-contrast study, the following observations are made. LUNG BASES: There are tiny bilateral pleural effusions new from prior. LIVER/GB: Gallbladder has dependent gallstones axial image 42. No surrounding inflammatory change. PANCREAS: No significant abnormality is seen. SPLEEN: No significant abnormality is seen. ADRENALS: No significant abnormality is seen. KIDNEYS: Cortical thinning in both kidneys. No renal stones or hydronephrosis is seen bilaterally. Fo gerardo catheter decompresses bladder. BOWEL: Stable small hiatal hernia. Stomach is poorly distended and suboptimally evaluated. No suspici ous small or large bowel dilatation. There is mild wall thickening in the right colon. There is more moderate wall thickening in the transverse colon extending into the left colon. There is mild ill-def ined fluid and fat stranding near the level of the splenic flexure involving distal transverse colon on the left colon. There are some diverticula in the sigmoid colon with improved wall thickening. GENITAL ORGANS: Anteverted uterus. Stable 2.0 cm right ovarian or adnexal low-density lesion presumed benign given stability in size from 2016 CT. Tiny amount of free fluid pelvic cul-de-sac study image 71 LYMPH NODES: No greater than 1cm abdominal or pelvic lymph nodes are appreciated. OSSEOUS STRUCTURES: Disc calcification lower lumbar levels is seen. Facet arthropathy lower lumbar le vels. OTHER: Moderate to severe vascular calcification of aorta extends into branch vessels.. IMPRESSION: 1. New moderate colitis most prominent involving transverse and left colon. Differential includes inf ectious inflammatory and ischemic etiologies. Correlate clinically. 2. Gallstone is redemonstrated without CT evidence for acute cholecystitis. 3. New tiny amount of free fluid in pelvic cul-de-sac. Stable right ovarian lesion presumed benign.
[2019-07-04] MEDS: PANTOPRAZOLE 40 MG/10 ML VIAL IVP SCH ×2 (15:03→21:52)
[2019-07-04] MEDS ORDERED: IV FLUID CONTINUATION 400 ML IV ONE (15:40)
[2019-07-04] MEDS ORDERED: PROPOFOL 10 MG/ML 20 ML VIAL IV ONE (15:40)
[2019-07-04] MEDS ORDERED: LIDOCAINE 1% INJ 10MG/ML (20 ML MDV) ONE (15:40)
--- NOTE | 2019-07-04 15:51 | P.PCN ---
Date of Procedure: 07/04/19 Procedure(s) Performed: BRIEF HISTORY: Patient is a 89-year-old, pleasant, female, admitted hospital with acute upper GI bleed. She multiple episodes of coffee-ground emesis/hematemesis followed by black tarry stools. She dropped hemoglobin from 12-10 g/dL. She is scheduled for an upper endoscopy to evaluate further. She is been taking Motrin on and off for the last few days.. PROCEDURE PERFORMED: Esophagogastroduodenoscopy. PREOPERATIVE DIAGNOSIS: Acute GI bleed. IV sedation per anesthesia. PROCEDURE: After informed consent was obtained, the patient was brought into the endoscopy unit. IV sedation was administered by Anesthesia under continuous monitoring. Initially the Olympus GIF-140 video endoscope was inserted into the mouth. Esophagus intubated without any difficulty. It was gradually advanced into the stomach and duodenum and carefully examined. The bulb and the second part of the duodenum appeared normal. The scope at this time was withdrawn to the stomach, adequately insufflated with air, and upon careful examination, mucosa of the antrum, body, cardia and the fundus appeared normal. The scope was then withdrawn into the esophagus. The GE junction was located at 39 cm from the incisors. 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 The esophagus appeared normal. There were no erosions or ulcerations seen and the patient tolerated the procedure well. IMPRESSION: 1. 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 2. No evidence of peptic ulcer disease. RECOMMENDATIONS: The findings of this examination were discussed with the patie nt as well as a family. Continue with Protonix 40 mg daily. Advance diet as tolerated..
[2019-07-04] MEDS: VANCOMYCIN ORAL SOLUTION 250 MG/5 ML BOTTLE PO SCH ×2 (16:40→21:52)
[2019-07-04] MEDS: CHERRY FLAVOR 60 ML BOTTLE PO SCH ×2 (16:41→21:52)
--- NOTE | 2019-07-04 19:38 | ECHOF ---
Referral Reason:bradycardia MEASUREMENTS -------- HEIGHT: 167.6 cm WEIGHT: 72.6 kg BP: IVSd: 1.4 cm (0.6 - 1.1) LVIDd: 3.1 cm (3.9 - 5.3) LVPWd: 1.7 cm (0.6 - 1.1) IVSs: 1.7 cm LVIDs: 2.4 cm LVPWs: 2.1 cm Ao Diam: 2.8 cm (2.0 - 3.7) AV Cusp: 1.6 cm (1.5 - 2.6) LA Diam: 3.4 cm (2.7 - 3.8) MV EXCURSION: 16.312 mm (> 18.000) MV EF SLOPE: 29 mm/s (70 - 150) EPSS: 1.7 cm MV E Giovanni: 1.01 m/s MV DecT: 249 ms MV A Giovanni: 1.14 m/s MV E/A Ratio: 0.89 RAP: 5.00 mmHg RVSP: 46.81 mmHg FINDINGS -------- Sinus rhythm. This was a technically adequate study. The left ventricular size is normal. There is moderate concentric left ventricular hypertrophy. O verall left ventricular systolic function is normal with, an EF between 55 - 60 %. The right ventricle is normal in size. The left atrial size is normal. The right atrial size is normal. Aneurysmal Interatrial septum. The aortic valve is trileaflet and appears structurally normal. There is trace mitral regurgitation. The tricuspid valve appears structurally normal. Moderate tricuspid regurgitation present. There is mild pulmonary hypertension. The pulmonic valve was not well visualized. The aortic root size is normal. Normal inferior vena cava with normal inspiratory collapse consistent with estimated right atrial pre ssure of 5 mmHg. There is no pericardial effusion. CONCLUSIONS -------- 1. Sinus rhythm. 2. This was a technically adequate study. 3. The left ventricular size is normal. 4. There is moderate concentric left ventricular hypertrophy. 5. Overall left ventricular systolic function is normal with, an EF between 55 - 60 %. 6. The right ventricle is normal in size. 7. The left atrial size is normal. 8. The right atrial size is normal. 9. Aneurysmal Interatrial septum. 10. The aortic valve is trileaflet and appears structurally normal. 11. There is trace mitral regurgitation. 12. The tricuspid valve appears structurally normal. 13. Moderate tricuspid regurgitation present. 14. There is mild pulmonary hypertension. 15. The pulmonic valve was not well visualized. 16. The aortic root size is normal. 17. Normal inferior vena cava with normal inspiratory collapse consistent with estimated right atrial pressure of 5 mmHg. 18. There is no pericardial effusion. [employer]IC: Deidre Zamora RDCS
[2019-07-05 05:00] LABS: Basophils # (A) 0.1 k/uL (0-0.2); Basophils % (A) 1 %; Eosinophils # (A) 0.1 k/uL (0-0.7); Eosinophils % (A) 1 %; HCT 28.2 % (34.0-46.0); Lymphocytes # (A) 1.8 k/uL (1.0-4.8); Lymphocytes % (A) 19 %; MCH 33.1 pg (25.0-35.0); MCHC 32.5 g/dL (31.0-37.0); MCV 101.9 fL (80.0-100.0); Macrocytosis Slight; Mean Platelet Volume 7.5; Monocytes # (A) 0.4 k/uL (0-1.0); Monocytes % (A) 4 %; Neutrophils # (A) 7.2 k/uL (1.3-7.7); Neutrophils % (A) 74 %; Platelet Count 153 k/uL (150-450); RBC 2.77 m/uL (3.80-5.40); RDW 13.7 % (11.5-15.5); WBC 9.8 k/uL (3.8-10.6)
[2019-07-05 05:02] LABS: HGB 9.2 gm/dL (11.4-16.0)
[2019-07-05 05:09] LABS: African American GFR (CKD) >90 (>60 ml/min/1.73 sqM); Anion Gap 2 mmol/L; Blood Urea Nitrogen 23 mg/dL (7-17); Calcium 7.7 mg/dL (8.4-10.2); Carbon Dioxide 22 mmol/L (22-30); Chloride 117 mmol/L (98-107); Glucose 97 mg/dL (74-99); Non-African American GFR(CKD) 84 (>60 ml/min/1.73 sqM); Potassium 3.5 mmol/L (3.5-5.1); Sodium 141 mmol/L (137-145)
[2019-07-05] MEDS ORDERED: Potassium Replacement Protocol 1 EACH MISC MISCELLANE PRN (06:29)
--- NOTE | 2019-07-05 07:34 | P.PN ---
Subjective Progress Note Date: 07/05/19 Principal diagnosis: GI bleeding This is a pleasant 89-year-old female patient with a past medical history significant for hypertension as well as thyroid disorder presented to the emergency room complaining of blood in the stools for the last 24 hours. The patient also was experiencing symptoms of nausea as well as vomiting. No abdominal discomfort. No fever and no chills. No symptoms of chest pain or chest discomfort. She was admitted to the intensive care unit for possible lower GI bleeding and a GI consult was obtained. The hemoglobin when she presented to the hospital was around 13 and a hemoglobin this morning was around 11. The patient stated that she was taken aspirin as an outpatient and also she was receiving nonsteroid anti-inflammatory for hip pain about twice a week. We involved in her care because off the bradycardia. The patient was yesterday in the bathroom having a bowel movement when she felt dizzy and lightheaded and she developed bradycardia as well as hypotension. The symptom seems to be consistent with vasovagal. She did not lose her consciousness. Beside that she did have an episode of muscle stent ventricular tachycardia last night. The patient is not aware of any history of coronary artery disease or congestive heart failure or cardiac arrhythmia and never seen any property specialist in the past. No diabetes, or dyslipidemia. She was at home receiving atenolol. She has been maintaining a good heart rate and she is slightly hypertensive. On examination she does have systolic murmur at the right upper sternal border. The rest of her blood work came in to be unremarkable. The EKG showed sinus rhythm with left anterior fascicular block and nonspecific ST or T-wave abnormalities. On follow-up with the patient today, she seems to be asymptomatic from a cardiovascular standpoint overview. She has been maintaining normal sinus mechanism. The hemoglobin dropped to about 9. No more episode of GI bleeding. She was seen by the GI service and underwent an upper endoscopy which revealed Eva-Muller without any active bleeding. She underwent an echocardiogram which revealed normal LV function with mild MR, and moderate TR. Objective - Vital Signs Vital signs: Vital Signs Temp 98.2 F 07/05/19 04:00 Pulse 73 07/05/19 07:00 Resp 23 07/05/19 07:00 BP 125/55 07/05/19 07:00 Pulse Ox 96 07/05/19 07:21 Intake & Output 07/04/19 07/05/19 07/05/19 18:59 06:59 18:59 Intake Total 950 900 75 Output Total 1010 390 30 Balance -60 510 45 Intake: IV 950 900 75 Sodium Chloride 0.9% 1, 900 900 75 000 ml @ 75 mls/hr IV . [id number] ONE Rx#:[id number] Output: Urine 1010 390 30 Other: Voiding Method Indwelling Catheter Indwelling Catheter # Voids 1 # Bowel Movements 1 - Constitutional General appearance: Present: no acute distress - Respiratory Respiratory: bilateral: CTA - Cardiovascular Rhythm: regular Heart sounds: normal: S1, S2 - Labs CBC & Chem 7: 07/05/19 04:46 07/05/19 04:46 Labs: Abnormal Lab Results - Last 24 Hours (Table) 07/04/19 07/04/19 07/05/19 Range/Units 09:00 12:04 04:46 WBC 12.5 H (3.8-10.6) k/uL RBC 3.35 L 2.77 L (3.80-5.40) m/uL Hgb 11.2 L 9.2 L D (11.4-16.0) gm/dL Hct 33.8 L 28.2 L (34.0-46.0) % MCV 100.9 H 101.9 H (80.0-100.0) fL Chloride (98-107) mmol/L BUN (7-17) mg/dL Calcium (8.4-10.2) mg/dL C. difficile (EIA) Intrp Positive A (Negative) 07/05/19 Range/Units 04:46 WBC (3.8-10.6) k/uL RBC (3.80-5.40) m/uL Hgb (11.4-16.0) gm/dL Hct (34.0-46.0) % MCV (80.0-100.0) fL Chloride 117 H (98-107) mmol/L BUN 23 H (7-17) mg/dL Calcium 7.7 L (8.4-10.2) mg/dL C. difficile (EIA) Intrp (Negative) Assessment and Plan Assessment: Assessment #1 lower GI bleeding. The patient currently is in process of being seen by the GI service #2 bradycardia and hypotension during a bowel movement. His is likely related to vasovagal. #3 one episode of nonsustained ventricular tachycardia #4 thyroid disorder Plan #1 continue holding the atenolol #2 continue monitor the heart rate and blood pressure #3 echo was reviewed and revealed normal LV function was moderate TR #4 follow-up with the patient Thank you for allowing us participate in her care and we will continue following up with the patient
[2019-07-05] MEDS: CHERRY FLAVOR 60 ML BOTTLE PO SCH ×3 (08:34→23:00)
[2019-07-05] MEDS: VANCOMYCIN ORAL SOLUTION 250 MG/5 ML BOTTLE PO SCH ×3 (08:34→23:00)
[2019-07-05] MEDS: PANTOPRAZOLE 40 MG/10 ML VIAL IVP SCH (08:35)
[2019-07-05] MEDS: POTASSIUM CHLORIDE ER 20 MEQ TAB.ER PO SCH ×2 (08:35→09:22)
[2019-07-05] MEDS: SODIUM CHLORIDE 0.9% 1,000 ML IV SCH ×2 (09:23→23:54)
--- NOTE | 2019-07-05 10:38 | PN ---
PROGRESS NOTE DATE OF SERVICE: July 05, 2019 This is an 89-year-old female seen yesterday in consultation. She came in with GI bleed. She had an EGD yesterday. It showed Eva-Muller tear, but there was no active bleeding. She was also tested positive for C difficile. She was started on oral vancomycin. Currently, she is doing well. She is on O2 at 2 L by nasal cannula and saline at 75 mL an hour. Her hemoglobin today was 9.2, which is down a bit. There is no active bleeding at this time. She does have a history of hypothyroidism, hypertension, lower extremity edema, and mild anemia. She denies any chest pain or chest discomfort. No shortness of breath. No cough or wheezing. No phlegm production. No further GI bleeding. No complaints. PHYSICAL EXAMINATION: VITAL SIGNS: Current vital signs are reviewed. Temperature 98.2. Heart rate 73, respiratory rate 23, blood pressure 125/55, mean 78, saturations are 96% on 1 L. Appears in no acute distress. HEENT examination is grossly unremarkable. NECK: Supple. Full range of motion. No adenopathy. Neck veins are flat. CARDIOVASCULAR examination reveals regular rhythm and rate. Heart rate 73 beats per minute. S1, S2 normal. There is no murmur. LUNGS: Reveal clear breath sounds. No adventitious lung sounds. Breath sounds equal bilaterally. ABDOMEN: Soft. Bowel sounds are heard. EXTREMITIES are intact. No cyanosis, clubbing, or edema. SKIN: Without rash. NEUROLOGIC examination is brief but nonfocal. LABS: Reviewed. White count 9.8, hemoglobin 9.2. Yesterday it was 11.2. Hematocrit 28.2, and platelet count 153,000. Sodium 141, potassium 3.5, chloride 117, CO2 22. Anion gap is 2, BUN and creatinine were 23 and 0.57. C diff was positive. No recent x-rays to report. MEDICATIONS: Reviewed. She was placed on oral vancomycin. She has got Lomotil, Narcan, Zofran, Protonix, oral vancomycin, and a basic IV. ASSESSMENT: 1. Gastrointestinal bleed, upper gastrointestinal tract, secondary to a Eva-Muller tear, but no active bleeding. 2. C difficile colitis. 3. History of hypothyroidism. 4. Hypertension. 5. Lower extremity edema. 6. Mild anemia. PLAN: The patient is doing better. She could be transferred out to the general medical floor. No active bleeding. We will continue to follow. Prognosis is guarded. Her hemoglobin did drop. She has not received any blood since she has been here. She is not requiring any significant interventions at this time to warrant to stay here in the ICU. Should she have a problem again, we will certainly move her back. CYN / ROSAURA: [id number] /
--- NOTE | 2019-07-05 10:44 | PN ---
PROGRESS NOTE DATE OF SERVICE: 07/05/2019. REQUESTING PHYSICIAN: Dr. Jorge Gudino. The patient is an 89-year-old pleasant white female admitted to the hospital with acute upper gastrointestinal bleed. She had an upper endoscopy done yesterday that showed a Eva-Muller tear with no active bleeding. The patient has been maintained on Protonix 40 mg daily and doing well. During this hospitalization, she was also diagnosed with C diff colitis and was started on Vancomycin yesterday. This morning she is feeling good, she reports no abdominal pain. No nausea, vomiting. No further episodes of melena. In fact, she had no bowel movement since yesterday. No fever, chills, night sweats. PHYSICAL EXAMINATION: She appears comfortable in no apparent distress. Vital signs stable. Blood pressure is 125/55, pulse is 75, temperature 98.1. HEENT examination: Unremarkable. Conjunctivae pink. Sclerae anicteric. Oral cavity no lesions. Neck no JVD or lymph node enlargement. Chest was clear to auscultation. HEART: Regular rate and rhythm. ABDOMEN: Soft, it was nontender, nondistended. Bowel sounds are positive. No organomegaly. EXTREMITIES: No pedal edema. Skin no rashes. NEUROLOGIC: Alert and oriented x3. No focal deficits. LABS: WBC 9.8, hemoglobin 9.2, platelets are normal. Basic metabolic panel is within normal limits. BUN is 23, creatinine 0.57. C. dif is positive. IMPRESSION: 1. Acute upper gastrointestinal bleed, status post EGD yesterday that showed a Eva- Muller tear with no active bleeding. Currently, the bleeding has subsided. Hemoglobin down to 9.2 g/dL. 2. Clostridium difficile colitis on oral vancomycin. The patient has no diarrhea. RECOMMENDATIONS: 1. Continue with Protonix 40 mg daily. 2. Advance diet as tolerated. 3. Continue oral vancomycin for C diff colitis. 4. She can be transferred to the floor today. 5. Repeat CBC in the morning. 6. We will follow with you closely during the hospital stay. Thank you for this consultation. MMODL / IJN: [id number] /
[2019-07-05] MEDS: PANTOPRAZOLE 40 MG TABLET PO SCH (16:55)
--- NOTE | 2019-07-06 00:14 | PN ---
PROGRESS NOTE 89-year-old white female in ICU. Hemoglobin dropped to 9.2 from 11.2. The patient has had a Eva-Muller tear on EGD, has not had any more bleeding in the last 24 hours even though hemoglobin has dropped down to 9.2. C diff is positive. She has been started on oral vancomycin 250 t.i.d. Cardiovascular: S1-S2. Lungs clear. GI: Increased bowel sounds. Psych: Fair mood and affect. ASSESSMENT: 1. Eva-Muller tear. 2. Gastrointestinal bleed. 3. Gastroenteritis. 4. C diff colitis. 5. Hypertension. 6. Dyslipidemia. Continue current treatment, vancomycin oral 250 t.i.d. Check CBC in the morning. Transfuse for hemoglobin less than 8. Possible discharge next 24 to 48 hours. ICU time - 30 minutes. MMODL / IJN: [id number] /
[2019-07-06 04:45] LABS: Basophils % (A) 0 %; Eosinophils # (A) 0.2 k/uL (0-0.7); Eosinophils % (A) 3 %; HCT 28.6 % (34.0-46.0); HGB 9.1 gm/dL (11.4-16.0); Lymphocytes # (A) 1.9 k/uL (1.0-4.8); Lymphocytes % (A) 22 %; MCH 32.5 pg (25.0-35.0); MCHC 31.8 g/dL (31.0-37.0); MCV 102.1 fL (80.0-100.0); Macrocytosis Slight; Mean Platelet Volume 7.6; Monocytes # (A) 0.3 k/uL (0-1.0); Monocytes % (A) 4 %; Neutrophils # (A) 6.1 k/uL (1.3-7.7); Neutrophils % (A) 71 %; Platelet Count 158 k/uL (150-450); WBC 8.7 k/uL (3.8-10.6)
[2019-07-06 04:52] LABS: African American GFR (CKD) >90 (>60 ml/min/1.73 sqM); Anion Gap 4 mmol/L; Blood Urea Nitrogen 14 mg/dL (7-17); Calcium 7.9 mg/dL (8.4-10.2); Carbon Dioxide 24 mmol/L (22-30); Chloride 113 mmol/L (98-107); Glucose 98 mg/dL (74-99); Non-African American GFR(CKD) 81 (>60 ml/min/1.73 sqM); Sodium 141 mmol/L (137-145)
[2019-07-06] MEDS: PANTOPRAZOLE 40 MG TABLET PO SCH ×2 (06:37→18:23)
--- NOTE | 2019-07-06 08:05 | P.PN ---
Subjective Progress Note Date: 07/06/19 Principal diagnosis: GI bleeding This is a pleasant 89-year-old female patient with a past medical history significant for hypertension as well as thyroid disorder presented to the emergency room complaining of blood in the stools for the last 24 hours. The patient also was experiencing symptoms of nausea as well as vomiting. No abdominal discomfort. No fever and no chills. No symptoms of chest pain or chest discomfort. She was admitted to the intensive care unit for possible lower GI bleeding and a GI consult was obtained. The hemoglobin when she presented to the hospital was around 13 and a hemoglobin this morning was around 11. The patient stated that she was taken aspirin as an outpatient and also she was receiving nonsteroid anti-inflammatory for hip pain about twice a week. We involved in her care because off the bradycardia. The patient was yesterday in the bathroom having a bowel movement when she felt dizzy and lightheaded and she developed bradycardia as well as hypotension. The symptom seems to be consistent with vasovagal. She did not lose her consciousness. Beside that she did have an episode of muscle stent ventricular tachycardia last night. The patient is not aware of any history of coronary artery disease or congestive heart failure or cardiac arrhythmia and never seen any senior tech manufacturing engineering in the past. No diabetes, or dyslipidemia. She was at home receiving atenolol. She has been maintaining a good heart rate and she is slightly hypertensive. On examination she does have systolic murmur at the right upper sternal border. The rest of her blood work came in to be unremarkable. The EKG showed sinus rhythm with left anterior fascicular block and nonspecific ST or T-wave abnormalities. On follow-up with the patient today, she seems to be asymptomatic from a cardiovascular standpoint overview. She has been maintaining normal sinus mechanism. The echo revealed normal LV function. I am going to start the pat ient on home dose of atenolol. Objective - Vital Signs Vital signs: Vital Signs Temp 98.1 F 07/06/19 04:00 Pulse 98 07/06/19 04:00 Resp 14 07/06/19 04:00 BP 140/69 07/06/19 04:00 Pulse Ox 92 L 07/06/19 07:27 Intake & Output 07/05/19 07/06/19 07/06/19 18:59 06:59 18:59 Intake Total 850 Output Total 265 450 Balance 585 -450 Weight 81.5 kg Intake: IV 75 Sodium Chloride 0.9% 1, 75 000 ml @ 75 mls/hr IV . [id number] ONE Rx#:[id number] Intake, IV Titration 375 Amount Sodium Chloride 0.9% 1, 375 000 ml @ 75 mls/hr IV . [id number] MYRON Rx#:[id number] Oral 400 Output: Urine 265 450 Other: Voiding Method Indwelling Catheter Indwelling Catheter - Constitutional General appearance: Present: no acute distress - Respiratory Respiratory: bilateral: CTA - Cardiovascular Rhythm: regular Heart sounds: normal: S1, S2 - Labs CBC & Chem 7: 07/06/19 04:16 07/06/19 04:16 Labs: Abnormal Lab Results - Last 24 Hours (Table) 07/06/19 07/06/19 Range/Units 04:16 04:16 RBC 2.80 L (3.80-5.40) m/uL Hgb 9.1 L (11.4-16.0) gm/dL Hct 28.6 L (34.0-46.0) % MCV 102.1 H (80.0-100.0) fL Chloride 113 H (98-107) mmol/L Calcium 7.9 L (8.4-10.2) mg/dL Assessment and Plan Assessment: Assessment #1 lower GI bleeding. The patient currently is in process of being seen by the GI service #2 bradycardia and hypotension during a bowel movement. His is likely related to vasovagal. #3 one episode of nonsustained ventricular tachycardia #4 thyroid disorder Plan #1 restart the patient on atenolol #2 continue monitor the blood pressure and heart rate #3 follow-up with the patient Thank you for allowing us participate in her care and we will continue following up with the patient
--- NOTE | 2019-07-06 08:42 | PN ---
PROGRESS NOTE DATE OF SERVICE: July 06, 2019 89-year-old female with a recent diagnosis of Eva-Muller tear, but no active bleeding. The patient came into the hospital with complaints of vomiting up blood. The patient does have a history of C difficile colitis, on oral vancomycin, hypothyroidism, hypertension, lower extremity edema and mild anemia. All in all, the patient is doing much better. The patient is currently on O2 at 2 L. Her IV saline at 75 mL an hour. She was started on oral vancomycin for the C difficile colitis. The patient denies any chest pain or chest discomfort. There is no shortness of breath. No cough or wheezing. No further episodes of gastrointestinal bleed. PHYSICAL EXAMINATION: VITAL SIGNS: Current vital signs include temperature 98.1, heart rate 98, respiratory rate 14, blood pressure 140/69, mean 92, 2 L saturation 98%. She appears in no acute distress. HEENT examination is grossly unremarkable. Mucous membranes are moist. No oral lesions. NECK: Supple. Full range of motion. No adenopathy or thyromegaly. Neck veins are flat. CARDIOVASCULAR examination reveals regular rhythm rate. S1, S2 normal. No S3, S4, or murmur. LUNGS: Reveal clear breath sounds. No wheezes or rhonchi. ABDOMEN: Soft. Bowel sounds are heard. No masses or tenderness. EXTREMITIES are intact. No cyanosis, clubbing, or edema. SKIN: Without rash. NEUROLOGIC examination is brief but nonfocal. LAB DATA: Reviewed. White count 8.7, hemoglobin 9.1, hematocrit 28.6, platelet count 158,000. Sodium 141, potassium 4, chloride 113, CO2 24, anion gap 4. Kidney function is normal. C diff testing was positive. No recent x-rays to review. ASSESSMENT: 1. Upper gastrointestinal bleed secondary to Eva-Muller tear, with no active bleeding. 2. C difficile colitis. 3. Hypothyroidism. 4. Hypertension. 5. Lower extremity edema. 6. Mild anemia. PLAN: The patient is doing well. She is a selective overflow patient. She has had no further episodes of hematemesis. We did discuss the diagnosis with her. She does understand. No additional recommendations are made. We will continue to follow. Prognosis is guarded. MMODL / IJN: [id number] /
[2019-07-06] MEDS: VANCOMYCIN ORAL SOLUTION 250 MG/5 ML BOTTLE PO SCH ×3 (09:19→20:37)
[2019-07-06] MEDS: CHERRY FLAVOR 60 ML BOTTLE PO SCH ×3 (09:20→20:37)
--- NOTE | 2019-07-06 10:12 | PN ---
PROGRESS NOTE Patient is an 89-year-old pleasant white female admitted to the hospital with nausea, vomiting, coffee-grounds emesis/hematemesis and melena. She had an upper endoscopy done by me 2 days ago that showed evidence of Eva-Muller tear with no active bleeding. While in the hospital, the patient was also noted to have some bradycardia and hypertension and Cardiology following the patient closely. She was also diagnosed with C diff colitis and presently on oral vancomycin. She is feeling good this morning. She did not have any bowel movement so far. No nausea, vomiting. Denies any abdominal pain. On a regular diet tolerating well. PHYSICAL EXAMINATION: She appears comfortable, in no apparent distress. VITAL SIGNS: Stable. Blood pressure is 121/57, pulse rate 82, temperature 97.9. HEENT: Examination unremarkable. Conjunctivae pink. Sclerae anicteric. Oral cavity no lesions. NECK: No JVD or lymph node enlargement. CHEST: Clear to auscultation. HEART: Regular rate and rhythm. ABDOMEN: Soft. Bowel sounds are positive. No organomegaly. EXTREMITIES: No pedal edema. SKIN: No rashes. NEUROLOGIC: Alert and oriented x3. No focal deficits. LABS: From today WBC 8.7, hemoglobin 9.1, platelets are normal. Basic metabolic panel is within normal limits. IMPRESSION: 1. Acute upper gastrointestinal bleed secondary to Eva-Muller tear, status post EGD 2 days ago as mentioned above. The patient is clinically stable and no further episodes of bleeding. She did drop her hemoglobin from 10.8 to 9.1 g/dL, but currently remains stable. 2. C diff colitis on oral vancomycin. No further episodes of diarrhea. 3. Hypertension and bradycardia, which seems to have resolved. Cardiology following the patient closely. RECOMMENDATIONS: 1. Continue with Protonix 40 mg daily. 2. Advance diet as tolerated. 3. CBC on daily basis. 4. Continue with vancomycin and will follow her closely during the hospital stay. Thank you for this consultation. MMODL / MARTINN: [id number] /
[2019-07-06] MEDS: SODIUM CHLORIDE 0.9% 1,000 ML IV SCH (16:18)
[2019-07-06] MEDS ORDERED: ATENOLOL 25 MG TAB PO SCH (21:00)
--- NOTE | 2019-07-07 01:06 | PN ---
PROGRESS NOTE SUBJECTIVE: 89-year-old white female with gastroenteritis, GI bleed, C diff colitis, Eva-Muller tear. Hemoglobin stabilizes 9.1. No further bleeding or vancomycin slowing down the diarrhea from C diff colitis. Will try to wean off oxygen today. Increase ambulation. Cardiovascular S1-S2. Lungs clear. GI: Increased bowel sounds x4. Hematology negative Homans. IMPRESSION: 1. Clostridium difficile colitis. 2. Gastrointestinal bleed from Eva-Muller tear. 3. Hypertension with anemia. Continue oral vancomycin. Check hemoglobin in the morning. Possible discharge home in the morning. MMODL / IJN: [id number] /
[2019-07-07] MEDS: SODIUM CHLORIDE 0.9% 1,000 ML IV SCH (04:07)
[2019-07-07 05:04] LABS: Basophils % (A) 0 %; Eosinophils # (A) 0.2 k/uL (0-0.7); Eosinophils % (A) 4 %; HCT 28.7 % (34.0-46.0); HGB 9.4 gm/dL (11.4-16.0); Lymphocytes # (A) 1.8 k/uL (1.0-4.8); Lymphocytes % (A) 28 %; MCH 33.4 pg (25.0-35.0); MCHC 32.8 g/dL (31.0-37.0); MCV 101.8 fL (80.0-100.0); Macrocytosis Slight; Mean Platelet Volume 7.5; Monocytes # (A) 0.3 k/uL (0-1.0); Monocytes % (A) 4 %; Neutrophils # (A) 4.1 k/uL (1.3-7.7); Neutrophils % (A) 63 %; Platelet Count 180 k/uL (150-450); RBC 2.81 m/uL (3.80-5.40); WBC 6.6 k/uL (3.8-10.6)
[2019-07-07] MEDS: PANTOPRAZOLE 40 MG TABLET PO SCH (06:46)
--- NOTE | 2019-07-07 07:20 | P.PN ---
Subjective Progress Note Date: 07/07/19 Principal diagnosis: GI bleeding This is a pleasant 89-year-old female patient with a past medical history significant for hypertension as well as thyroid disorder presented to the emergency room complaining of blood in the stools for the last 24 hours. The patient also was experiencing symptoms of nausea as well as vomiting. No abdominal discomfort. No fever and no chills. No symptoms of chest pain or chest discomfort. She was admitted to the intensive care unit for possible lower GI bleeding and a GI consult was obtained. The hemoglobin when she presented to the hospital was around 13 and a hemoglobin this morning was around 11. The patient stated that she was taken aspirin as an outpatient and also she was receiving nonsteroid anti-inflammatory for hip pain about twice a week. We involved in her care because off the bradycardia. The patient was yesterday in the bathroom having a bowel movement when she felt dizzy and lightheaded and she developed bradycardia as well as hypotension. The symptom seems to be consistent with vasovagal. She did not lose her consciousness. Beside that she did have an episode of nonsustained ventricular tachycardia last night. The patient is not aware of any history of coronary artery disease or congestive heart failure or cardiac arrhythmia and never seen any groover operator in the past. No diabetes, or dyslipidemia. She was at home receiving atenolol. I'll follow-up with the patient today, 07/07/2019, the patient has been doing well clinically. Her lowest hemoglobin was 9.1. She is asymptomatic. She has been maintaining normal sinus mechanism. No more episodes of sinus bradycardia and no more episode of nonsustained ventricular tachycardia. The echocardiogram revealed normal LV function was moderate tricuspid regurgitation. Yesterday I did restart the patient back on her home dose of atenolol. Objective - Vital Signs Vital signs: Vital Signs Temp 97.2 F L 07/07/19 04:00 Pulse 92 07/07/19 04:00 Resp 16 07/07/19 04:00 BP 133/72 07/07/19 04:00 Pulse Ox 94 L 07/07/19 04:00 Intake & Output 07/06/19 07/07/19 07/07/19 18:59 06:59 18:59 Intake Total 750 Output Total 275 900 Balance 475 -900 Weight 83.2 kg Intake: Intake, IV Titration 750 Amount Sodium Chloride 0.9% 1, 750 000 ml @ 75 mls/hr IV . [id number] COUNT INCLUDES THE [facility] Rx#:[id number] Output: Urine 275 900 Other: Voiding Method Indwelling Catheter Bedpan # Bowel Movements 1 - Constitutional General appearance: Present: no acute distress - Respiratory Respiratory: bilateral: CTA - Cardiovascular Rhythm: regular Heart sounds: normal: S1, S2 - Labs CBC & Chem 7: 07/07/19 04:17 07/06/19 04:16 Labs: Abnormal Lab Results - Last 24 Hours (Table) 07/07/19 Range/Units 04:17 RBC 2.81 L (3.80-5.40) m/uL Hgb 9.4 L (11.4-16.0) gm/dL Hct 28.7 L (34.0-46.0) % MCV 101.8 H (80.0-100.0) fL Assessment and Plan Assessment: Assessment #1 lower GI bleeding. The patient currently is in process of being seen by the GI service #2 bradycardia and hypotension during a bowel movement. His is likely related to vasovagal. #3 one episode of nonsustained ventricular tachycardia #4 thyroid disorder Plan #1 continue the current medical regimen including the home dose of atenolol #2 the patient might be able to be transferred out of the ICU
[2019-07-07] MEDS: VANCOMYCIN ORAL SOLUTION 250 MG/5 ML BOTTLE PO SCH ×2 (09:28→15:56)
[2019-07-07] MEDS: CHERRY FLAVOR 60 ML BOTTLE PO SCH ×2 (09:28→15:56)
--- NOTE | 2019-07-07 14:10 | P.DS ---
Providers Date of admission: 07/04/19 11:03 Expected date of discharge: 07/07/19 Attending physician: Jorge Gudino Consults: 07/03/19 19:49 Consult Physician Routine Consulting Provider: Daysi Kauffman Consult Reason/Comments: irregular rhythm Do you want consulting provider notified?: Yes 07/04/19 00:58 Consult Physician Routine Consulting Provider: Compa Gamboa Consult Reason/Comments: ICU Do you want consulting provider notified?: Already Contacted Primary care physician: [facility] Course: Final Diagnoses: -Acute C. 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 tach [id number] female admitted with gastroenteritis, GI bleed, stiff colitis, Eva-Muller tear. Hemoglobin remained stable at 9.4%. Hypoxic, will require 2 L nasal cannula at home, desatted to 85% of sleeping, and 87-88% on room air after ambulating. Maintained on oral vancomycin. Diarrhea has subsided. Significant clinical improvement. Patient will be discharged home today pending clearance from GI and cardiology, in a stable condition with guarded prognosis. EXAM: GEN: Alert and oriented 3, no acute distress Lungs: Clear to auscultationCV: Regular S1, S2 ABD: Soft, positive bowel sounds, no organomegaly Neuro: No focal deficits The impression and plan of care has been dictated as directed. .: I performed a history and examination of this patient, discussed the same with the dictator. I agree with the dictator's note ,documented as a scribe. Any additional findings or plans will be noted. Time taken: 35 minutes Patient Condition at Discharge: Stable Plan - Discharge Summary Discharge Rx Participant: Yes New Discharge Prescriptions: New Pantoprazole [Protonix] 40 mg PO AC-BID #60 tablet. Vancomycin HCl [Vancomycin HCl Oral Soln] 250 mg PO TID #210 ml Continue Atenolol 25 mg PO HS Furosemide [Lasix] 40 mg PO DAILY Levothyroxine Sodium 25 mcg PO DAILY Potassium Chloride ER [K-Dur 10] 10 meq PO BID Discontinued Aspirin [Adult Low Dose Aspirin EC] 81 mg PO HS Discharge Medication List Atenolol 25 mg PO HS 07/03/18 [History] Furosemide [Lasix] 40 mg PO DAILY 07/03/18 [History] Levothyroxine Sodium 25 mcg PO DAILY 07/03/18 [History] Potassium Chloride ER [K-Dur 10] 10 meq PO BID 07/03/18 [History] Pantoprazole [Protonix] 40 mg PO AC-BID #60 tablet. 07/07/19 [Rx] Vancomycin HCl [Vancomycin HCl Oral Soln] 250 mg PO TID #210 ml 07/07/19 [Rx] Follow up Appointment(s)/Referral(s): Jorge Gudino MD [Primary Care Provider] - 3 Days Saida Brizuela MD [STAFF PHYSICIAN] - 2 Weeks [facility], [NON-STAFF] - 1-2 Days Activity/Diet/Wound Care/Special Instructions: Case management to arrange for oxygen, 2 L nasal cannula. Aspirin on hold. O2 sat was sleeping 85%, O2 sat after ambulation 88%.Confirm cardiology follow-up appointment prior to discharge. Resume Lasix in 48 hours-Sunday.
--- NOTE | 2019-07-07 14:47 | P.PN ---
Subjective Progress Note Date: 07/07/19 9-year-old female patient who came in for upper GI bleed and ultimately further investigation revealed the diagnosis of Eva-Muller tear. Since then the patient has not had any further episodes of bleeding and hemoglobin has been stable and the patient denies having any nausea or emesis. Also the patient was found to have diarrhea and further investigation led to diagnosis of C. diff colitis and the patient is currently on oral vancomycin. Both upper and lower GI symptoms have improved and the patient is not having any diarrhea and nausea vomiting or emesis at this point in time and she is tolerating her diet. She is on IV fluids. She is hemodynamic is stable. No altered mentation. No ab dominal pain. No abdominal distention. No respiratory distress for now. I was able to put her on room air oxygen. Her cardiac rhythm is sinus. No further episodes of SVT or bradycardia. Objective - Vital Signs Vital signs: Vital Signs Temp 97.9 F 07/07/19 12:00 Pulse 74 07/07/19 12:00 Resp 16 07/07/19 12:00 BP 133/72 07/07/19 12:00 Pulse Ox 92 L 07/07/19 12:00 Intake & Output 07/06/19 07/07/19 07/07/19 18:59 06:59 18:59 Intake Total 750 300 Output Total 275 900 Balance 475 -900 300 Weight 83.2 kg Intake: Intake, IV Titration 750 300 Amount IV Fluid Continuation 400 300 ml @ 0 mls/hr IV .ST[facility]- [facility] Rx#:[id number] Sodium Chloride 0.9% 1, 750 000 ml @ 75 mls/hr IV . [id number] Rx#:[id number] Output: Urine 275 900 Other: Voiding Method Indwelling Catheter Bedpan Bedpan # Voids 1 # Bowel Movements 1 - Exam The patient appeared well nourished and normally developed. Vital signs as documented. Head exam is unremarkable. No scleral icterus or corneal arcus noted. Neck is without jugular venous distension, thyromegaly, or carotid bruits. Carotid upstrokes are brisk bilaterally. Lungs are clear to auscultation and percussion. Cardiac exam reveals the PMI to be normally sized and situated. Rhythm is regular. First and second heart sounds normal. No murmurs, rubs or gallops. Abdominal exam reveals normal bowel sounds, no masses, no organomegaly and no aortic enlargement. Extremities are nonedematous and both femoral and pedal pulses are normal.Examination of the skin revealed no evidence of significant rashes, suspicious appearing nevi or other concerning lesions. Neurologically the patient is exam is nonfocal. - Labs CBC & Chem 7: 07/07/19 04:17 07/06/19 04:16 Labs: Abnormal Lab Results - Last 24 Hours (Table) 07/07/19 Range/Units 04:17 RBC 2.81 L (3.80-5.40) m/uL Hgb 9.4 L (11.4-16.0) gm/dL Hct 28.7 L (34.0-46.0) % MCV 101.8 H (80.0-100.0) fL Assessment and Plan Plan: 1 upper GI bleed secondary to Eva-Muller tear currently inactive in stable and there is no further episodes of bleeding and hemoglobin is stable and hemodynamically patient is stable 2 C. diff colitis on oral vancomycin 3 hypertension 4 hypothyroidism 5 episodes of SVT current rhythm is sinus 6 episodes of bradycardia probably related to bowel movements activity, related by cardiology and echocardiogram is within normal limits Plan The patient is doing well. The patient be ambulated. The patient be taken off the oxygen. The evaluation of oxygenation will be done. Continue oral vancomycin. Discharge planning is in progress and will make further recommendations based on her progress. She is doing well. TMs GI standpoint her condition have stabilized and the patient is able to tolerate a diet without any major difficulties.
[2019-07-07 16:38] VITALS: BP 162/78; PULSE 88; RESP 20; TEMP 98.1
== END 2019-07-07 17:15 | disposition home health service (06) | DRG 368 ==
LOC: EC 14:36 → 4SSUR 17:00 → 2SICU 07-04 → OBSVTOIN 07-04 11:03
PROVIDERS: ADMIT Family Medicine; ATTEND Family Medicine
PROC: 0DJ08ZZ Inspection of Upper Intestinal Tract, Via Natural or Artificial Opening Endoscopic (ICD-10-PCS; principal; 2019-07-04 08:15)
DX: K22.6 Gastro-esophageal laceration-hemorrhage syndrome (principal); J96.01 Acute respiratory failure with hypoxia; A04.72 Enterocolitis due to Clostridium difficile, not specified as recurrent; D62 Acute posthemorrhagic anemia; I47.1 Supraventricular tachycardia; E03.9 Hypothyroidism, unspecified; E78.5 Hyperlipidemia, unspecified; I07.1 Rheumatic tricuspid insufficiency; I10 Essential (primary) hypertension; I44.4 Left anterior fascicular block; K57.31 Diverticulosis of large intestine without perforation or abscess with bleeding; Z79.82 Long term (current) use of aspirin; Z79.890 Hormone replacement therapy; Z79.899 Other long term (current) drug therapy; Z80.1 Family history of malignant neoplasm of trachea, bronchus and lung; Z82.49 Family history of ischemic heart disease and other diseases of the circulatory system; S91.012A Laceration without foreign body, left ankle, initial encounter; Z79.1 Long term (current) use of non-steroidal anti-inflammatories (NSAID); Z88.1 Allergy status to other antibiotic agents; Z88.2 Allergy status to sulfonamides; R60.0 Localized edema
CPT/HCPCS: 36415; 43235; 74176; 80048; 80053; 81003; 82272; 83605; 83735; 84443; 84484; 85025; 85027; 85610; 85730; 86850; 86900; 86901; 87324; 93005; 93306; 96365; 96374; 96375; 99285

== ENCOUNTER 2019-07-16 13:39 | Emergency (ER) | payer MEDICARE, BC ==
[2019-07-16] MEDS ORDERED: SODIUM CHLORIDE 0.9% 1,000 ML IV STA (14:00)
--- NOTE | 2019-07-16 14:01 | ED ---
Weakness HPI - General Chief complaint: Weakness Stated complaint: DIZZINESS UPON STANDING Time Seen by Provider: 07/16/19 13:59 Source: patient, RN notes reviewed, old records reviewed Mode of arrival: EMS Limitations: no limitations - History of Present Illness Initial comments: This is a 9-year-old female the ER for evaluation, patient denying for weakness lightheadedness dizziness feel like she may pass out. Patient has known C. diff currently on antibiotics. No other complaints no headache chest pain shortness breath or abdominal pain positive, on arrival to ER for EMS patient symptoms are significantly improved secondary to IV hydration MD Complaint: generalized weakness -: minutes(s) Location: generalized Severity: mild Severity scale (1-10): 3 Consistency: constant Improves with: none Worsens with: none Context: recent illness (C. diff) Associated Symptoms: denies other symptoms - Related Data Home Medications Medication Instructions Recorded Confirmed Atenolol 25 mg PO HS@2200 07/03/18 07/16/19 Furosemide [Lasix] 60 mg PO DAILY@0930 07/03/18 07/16/19 Levothyroxine Sodium 25 mcg PO DAILY 07/03/18 07/16/19 Potassium Chloride ER [K-Dur 10] 10 meq PO BID@0930,2200 07/03/18 07/16/19 Ferrous Sulfate [Feosol] 325 mg PO DAILY@1300 07/16/19 07/16/19 Pantoprazole [Protonix] 40 mg PO BID@0930,1530 07/16/19 07/16/19 Vancomycin HCl [Vancomycin HCl 250 mg PO TID@0600,1400,2200 07/16/19 07/16/19 Oral Soln] Allergies Allergy/AdvReac Type Severity Reaction Status Date / Time bacitracin Allergy Rash/Hives Verified 07/16/19 14:00 [From Neosporin ([id number])] neomycin Allergy Rash/Hives Verified 07/16/19 14:00 [From Neosporin ([id number])] polymyxin B Allergy Rash/Hives Verified 07/16/19 14:00 [From Neosporin ([id number])] Review of Systems ROS Statement: Those systems with pertinent positive or pertinent negative responses have been documented in the HPI. ROS Other: All systems not noted in ROS Statement are negative. Past Medical History Past Medical History: Thyroid Disorder Additional Past Medical History / Comment(s): irregular heart beat, fluid retention, wound lt outer leg by ankle History of Any Multi-Drug Resistant Organisms: None Reported Past Surgical History: Appendectomy Additional Past Surgical History / Comment(s): surgery for perforated rt eardrum and bone loss Past Anesthesia/Blood Transfusion Reactions: No Reported Reaction Past Psychological History: No Psychological Hx Reported Smoking Status: Never smoker Past Alcohol Use History: Daily Past Drug Use History: None Reported - Past Family History Sister(s) Family Medical History: Cancer Additional Family Medical History / Comment(s): lung cancer Mother Family Medical History: Congestive Heart Failure (CHF) General Exam Limitations: no limitations General appearance: alert, in no apparent distress Head exam: Present: atraumatic, normocephalic, normal inspection Eye exam: Present: normal appearance, PERRL, EOMI. Absent: scleral icterus, conjunctival injection, periorbital swelling ENT exam: Present: normal exam, mucous membranes moist Neck exam: Present: normal inspection. Absent: tenderness, meningismus, lymphadenopathy Respiratory exam: Present: normal lung sounds bilaterally. Absent: respiratory distress, wheezes, rales, rhonchi, stridor Cardiovascular Exam: Present: regular rate, normal rhythm, normal heart sounds. Absent: systolic murmur, diastolic murmur, rubs, gallop, clicks GI/Abdominal exam: Present: soft, normal bowel sounds. Absent: distended, tenderness, guarding, rebound, rigid Extremities exam: Present: normal inspection, full ROM, normal capillary refill. Absent: tenderness, pedal edema, joint swelling, calf tenderness Back exam: Present: normal inspection Neurological exam: Present: alert, oriented X3, CN II-XII intact Psychiatric exam: Present: normal affect, normal mood Skin exam: Present: warm, dry, intact, normal color. Absent: rash Course Vital Signs 07/16/19 07/16/19 13:40 13:46 Temperature 98.2 F Pulse Rate 67 Pulse Rate [ 67 Fire Sprinkler Inspector ] Respiratory 15 Rate O2 Sat by Pulse 98 Oximetry - Reevaluation(s) Reevaluation #1: 07/16/19 15:17 Medical records reviewed Reevaluation #2: 07/16/19 15:17 Does resolved with hydration patient asking to be discharged EKG Findings - EKG Comments: EKG Findings:: EKG shows sinus bradycardia rate of 58, OK 180, QRS 90, QTc 445 Medical Decision Making - Medical Decision Making 89 female the ER for evaluation, patient given hydration here in the ER and symptoms improved. Patient can be discharged home, states she feels better would like to be discharged - Lab Data Result diagrams: 07/16/19 13:55 07/16/19 13:55 Lab Results 07/16/19 07/16/19 07/16/19 Range/Units 13:55 13:55 13:55 WBC 6.2 (3.8-10.6) k/uL RBC 3.29 L (3.80-5.40) m/uL Hgb 10.4 L (11.4-16.0) gm/dL Hct 32.0 L (34.0-46.0) % MCV 97.1 (80.0-100.0) fL MCH 31.7 (25.0-35.0) pg MCHC 32.7 (31.0-37.0) g/dL RDW 13.0 (11.5-15.5) % Plt Count 385 D (150-450) k/uL Neutrophils % 67 % Lymphocytes % 26 % Monocytes % 4 % Eosinophils % 1 % Basophils % 0 % Neutrophils # 4.1 (1.3-7.7) k/uL Lymphocytes # 1.6 (1.0-4.8) k/uL Monocytes # 0.3 (0-1.0) k/uL Eosinophils # 0.1 (0-0.7) k/uL Basophils # 0.0 (0-0.2) k/uL PT (9.0-12.0) sec INR (<1.2) APTT (22.0-30.0) sec Sodium 139 (137-145) mmol/L Potassium 4.3 (3.5-5.1) mmol/L Chloride 103 (98-107) mmol/L Carbon Dioxide 25 (22-30) mmol/L Anion Gap 11 mmol/L BUN 20 H (7-17) mg/dL Creatinine 0.88 (0.52-1.04) mg/dL Est GFR (CKD-EPI)AfAm 69 (>60 ml/min/1.73 sqM) Est GFR (CKD-EPI)NonAf 60 (>60 ml/min/1.73 sqM) Glucose 96 (74-99) mg/dL Plasma Lactic Acid Torin 1.5 (0.7-2.0) mmol/L Calcium 9.2 (8.4-10.2) mg/dL Phosphorus 3.4 (2.5-4.5) mg/dL Magnesium 2.3 (1.6-2.3) mg/dL Total Bilirubin 0.6 (0.2-1.3) mg/dL AST 24 (14-36) U/L ALT 19 (9-52) U/L Alkaline Phosphatase 68 (38-126) U/L Creatine Kinase 80 (30-135) U/L Total Protein 6.9 (6.3-8.2) g/dL Albumin 4.0 (3.5-5.0) g/dL 07/16/19 Range/Units 13:55 WBC (3.8-10.6) k/uL RBC (3.80-5.40) m/uL Hgb (11.4-16.0) gm/dL Hct (34.0-46.0) % MCV (80.0-100.0) fL MCH (25.0-35.0) pg MCHC (31.0-37.0) g/dL RDW (11.5-15.5) % Plt Count (150-450) k/uL Neutrophils % % Lymphocytes % % Monocytes % % Eosinophils % % Basophils % % Neutrophils # (1.3-7.7) k/uL Lymphocytes # (1.0-4.8) k/uL Monocytes # (0-1.0) k/uL Eosinophils # (0-0.7) k/uL Basophils # (0-0.2) k/uL PT 10.2 (9.0-12.0) sec INR 0.9 (<1.2) APTT 21.3 L (22.0-30.0) sec Sodium (137-145) mmol/L Potassium (3.5-5.1) mmol/L Chloride (98-107) mmol/L Carbon Dioxide (22-30) mmol/L Anion Gap mmol/L BUN (7-17) mg/dL Creatinine (0.52-1.04) mg/dL Est GFR (CKD-EPI)AfAm (>60 ml/min/1.73 sqM) Est GFR (CKD-EPI)NonAf (>60 ml/min/1.73 sqM) Glucose (74-99) mg/dL Plasma Lactic Acid Torin (0.7-2.0) mmol/L Calcium (8.4-10.2) mg/dL Phosphorus (2.5-4.5) mg/dL Magnesium (1.6-2.3) mg/dL Total Bilirubin (0.2-1.3) mg/dL AST (14-36) U/L ALT (9-52) U/L Alkaline Phosphatase (38-126) U/L Creatine Kinase (30-135) U/L Total Protein (6.3-8.2) g/dL Albumin (3.5-5.0) g/dL Disposition Clinical Impression: Dehydration, Gastroenteritis, Weakness Disposition: HOME SELF-CARE Condition: Good Instructions (If sedation given, give patient instructions): Dehydration (ED), Weakness (ED) Is patient prescribed a controlled substance at d/c from ED?: No Referrals: Jorge Gudino MD [Primary Care Provider] - 1-2 days
[2019-07-16 14:27] LABS: Calcium 9.2 mg/dL (8.4-10.2); Magnesium 2.3 mg/dL (1.6-2.3); Phosphorus 3.4 mg/dL (2.5-4.5); Potassium 4.3 mmol/L (3.5-5.1); Total Bilirubin 0.6 mg/dL (0.2-1.3); Total Protein 6.9 g/dL (6.3-8.2)
[2019-07-16 14:28] LABS: INR 0.9 (<1.2); Prothrombin Time 10.2 sec (9.0-12.0)
[2019-07-16 14:30] LABS: Basophils % (A) 0 %; Eosinophils # (A) 0.1 k/uL (0-0.7); Eosinophils % (A) 1 %; HGB 10.4 gm/dL (11.4-16.0); Lymphocytes # (A) 1.6 k/uL (1.0-4.8); Lymphocytes % (A) 26 %; MCH 31.7 pg (25.0-35.0); MCHC 32.7 g/dL (31.0-37.0); MCV 97.1 fL (80.0-100.0); Mean Platelet Volume 6.9; Monocytes # (A) 0.3 k/uL (0-1.0); Monocytes % (A) 4 %; Neutrophils # (A) 4.1 k/uL (1.3-7.7); Neutrophils % (A) 67 %; RBC 3.29 m/uL (3.80-5.40); WBC 6.2 k/uL (3.8-10.6)
[2019-07-16 14:31] LABS: Platelet Count 385 k/uL (150-450)
[2019-07-16 14:55] LABS: Partial Thromboplastin Time 21.3 sec (22.0-30.0)
[2019-07-16 15:23] VITALS: BP 155/74; PULSE 63; RESP 14; TEMP 97.6
== END 2019-07-16 15:11 | disposition home or self-care (01) ==
LOC: EC 13:39
DX: E86.0 Dehydration (principal); K52.9 Noninfective gastroenteritis and colitis, unspecified; E07.9 Disorder of thyroid, unspecified; A04.72 Enterocolitis due to Clostridium difficile, not specified as recurrent; I49.9 Cardiac arrhythmia, unspecified; Z79.890 Hormone replacement therapy; Z79.899 Other long term (current) drug therapy; Z88.1 Allergy status to other antibiotic agents; Z87.448 Personal history of other diseases of urinary system
CPT/HCPCS: 36415; 80053; 82550; 83605; 83735; 83880; 84100; 84443; 84484; 85025; 85610; 85730; 93005; 96360; 99285

== ENCOUNTER 2019-09-17 10:17 | Emergency (ER) | payer OTHER, MEDICARE, BC ==
[2019-09-17] MEDS ORDERED: LIDOCAINE 1%-EPI 1:100,000 20 ML VIAL SQ STA (10:36)
[2019-09-17] MEDS ORDERED: DIPH,PERTUS(ACELL)TETVAC-LF 0.5 ML VIAL IM ONE (10:36)
[2019-09-17] MEDS ORDERED: BUPIVACAINE (PF) 0.5% 30 ML VIAL SQ STA (10:36)
[2019-09-17] MEDS ORDERED: RX INFO: IV CONTRAST WAS GIVEN 1 EACH MISC MISCELLANE PRN (10:37)
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
[2019-09-17 11:43] LABS: Basophils % (A) 0 %; Eosinophils # (A) 0.1 k/uL (0-0.7); Eosinophils % (A) 2 %; HCT 37.9 % (34.0-46.0); HGB 12.4 gm/dL (11.4-16.0); Lymphocytes # (A) 1.5 k/uL (1.0-4.8); Lymphocytes % (A) 20 %; MCH 31.9 pg (25.0-35.0); MCHC 32.8 g/dL (31.0-37.0); MCV 97.2 fL (80.0-100.0); Monocytes # (A) 0.3 k/uL (0-1.0); Monocytes % (A) 4 %; Neutrophils # (A) 5.4 k/uL (1.3-7.7); Neutrophils % (A) 73 %; Platelet Count 239 k/uL (150-450); RDW 12.5 % (11.5-15.5); WBC 7.3 k/uL (3.8-10.6)
[2019-09-17 11:58] LABS: Albumin 4.6 g/dL (3.5-5.0); Calcium 9.7 mg/dL (8.4-10.2); Total Bilirubin 0.9 mg/dL (0.2-1.3); Total Protein 7.9 g/dL (6.3-8.2)
[2019-09-17 12:01] LABS: Potassium 5.1 mmol/L (3.5-5.1)
[2019-09-17 12:07] LABS: INR 0.9 (<1.2); Partial Thromboplastin Time 23.5 sec (22.0-30.0)
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
[2019-09-17 14:30] VITALS: BP 143/78; PULSE 65; RESP 18; TEMP 98.2
== END 2019-09-17 14:45 | disposition home or self-care (01) ==
LOC: EC 10:17
DX: S81.811A Laceration without foreign body, right lower leg, initial encounter (principal); S80.12XA Contusion of left lower leg, initial encounter; S29.9XXA Unspecified injury of thorax, initial encounter; I10 Essential (primary) hypertension; I49.3 Ventricular premature depolarization; M25.552 Pain in left hip; E07.9 Disorder of thyroid, unspecified; Z88.1 Allergy status to other antibiotic agents; Z79.82 Long term (current) use of aspirin; Z79.890 Hormone replacement therapy; Z79.899 Other long term (current) drug therapy; Z23 Encounter for immunization; V49.49XA Driver injured in collision with other motor vehicles in traffic accident, initial encounter; Y92.410 Unspecified street and highway as the place of occurrence of the external cause; Z82.49 Family history of ischemic heart disease and other diseases of the circulatory system
CPT/HCPCS: 36415; 93005; 80053; 84484; 85025; 85610; 85730; 73590; 72170; 71045; 71260; 90715; 99285; 12001; 90471; Q9967